=== PATIENT | female | born 1950 | race Caucasian/White ===

== ENCOUNTER → 2020-07-25 16:26 | Outpatient (CLI) | payer MEDICARE, SELFPAY ==
--- NOTE | ~2020-07-25 | MM_ITS ---
EXAMINATION: MM screening luc BI w winston HISTORY: Screening TECHNIQUE: Craniocaudal and mediolateral oblique 3-D tomosynthesis images were obtained and synthetic 2-D images were generated. CAD analysis was submitted and interpreted. COMPARISON: Comparison to multiple prior studies sequentially, with oldest reviewed study dated 04/13. BREAST PARENCHYMAL COMPOSITION: The breasts are extremely dense, which lowers the sensitivity of mamm ography FINDINGS: There is no evidence of suspicious mass, calcification, or architectural distortion to sugg est malignancy in either breast. There has been no suspicious interval change. IMPRESSION: 1. No mammographic evidence of malignancy. 2. Recommend routine screening mammography in one year. BI-RADS Category 1: Negative Reviewed, dictated and finalized at location A.
== END ==
DX: Z12.31 Encounter for screening mammogram for malignant neoplasm of breast (principal)
CPT/HCPCS: 77063; 77067

== ENCOUNTER 2020-12-25 17:31 | Emergency (ER) | payer MEDICARE, SELFPAY ==
[2020-12-25 18:17] VITALS: BP 114/45; PULSE 59; RESP 16; TEMP 36.2; O2SAT 94
--- NOTE | 2020-12-25 21:02 | PC.NURSE ---
states I am just going to go home denies any sob. states feeling better. Advised to stay to be evaluated by provider.
== END 2020-12-25 21:02 | disposition left against medical advice (07) ==
DX: R10.9 Unspecified abdominal pain (principal)
CPT/HCPCS: 99199

== ENCOUNTER 2021-07-31 02:20 | Day surgery (SDC) | payer MEDICARE, SELFPAY ==
[2021-07-09 14:37] VITALS: BMI 19.8
--- NOTE | 2021-07-14 08:34 | SUR.PREOP ---
07/14/21 0836 spoke with patient via phone regarding contacting [facility] for her prep. Pt complained of having abdominal pain with lifting and coughing. Patient states that she had one or two hernias. Instructed the patient to call her primary to discuss her abdominal pain and possible hernia. We discussed the possibility of maybe needing to cancel her screening colonoscopy while they look into her hernia/abdominal pain. Patient stated she was going to call her primary to set up an appointment to see them to get it looked at. I discuss the potential of having or getting an incarcerated hernia and the need to get is checked out. Patient voiced understanding. She said she would wait to call [facility] until she seen her primary in the event that she would need to post-pone her colonoscopy. I asked that she just let us know what she finds out in regards to keeping her colonoscopy appointment. She agreed.
[2021-07-31 07:54] VITALS: BP 118/51; PULSE 62; RESP 16; TEMP 36.5; O2SAT 99
[2021-07-31] MEDS: LACTATED RINGERS 1,000 ML 150 ML IV CONT (08:08)
--- NOTE | 2021-07-31 08:24 | WPDGICN ---
Assessment and Plan Assessment and plan (1) Family history of rectal cancer: Code(s): Z80.0 - Family history of malignant neoplasm of digestive organs Status: Acute Assessment and Plan: Patient's sister had rectal cancer at a young age 20. Plan is for surveillance colonoscopy now and consider this at 5 year intervals in the future. GI Consult Note Consult date/time: 07/31/21 08:24 Reason for consult: Family history of rectal cancer in her sister. HPI: Jimena Au is a 71 year old female Presents for neoplasia screening colonoscopy. Patient's current weight appetite and bowel movements are normal. She denies abdominal pain. Patient has had no bleeding. Family history is significant her sister had rectal cancer at age 20. Patient's most recent colonoscopy 2015 was unremarkable. Patient presents today for follow-up surveillance colonoscopy. Her current weight appetite bowel movements are normal. She denies abdominal pain. Patient has had no bleeding. She desires neoplasia screening. Review of Systems Review of Systems: Review of systems noncontributory. PMF Social History Social History Smoking status: Current every day smoker Smokeless tobacco user: other Additional smoking assessment comments: Smokes marijuana Alcohol intake: current Drinks per week: 2 Substance use: current Substance use type: marijuana Other substance usage details: Smokes Last use: 07/09/21 Living arrangements: other Additional living arrangements comments: With SP Spiritual care concerns: No Meds Home Medications and Allergies Home Medications Medication Instructions Recorded Confirmed Type No Home Medications 07/09/21 07/31/21 History Allergies Allergy/AdvReac Type Severity Reaction Status Date / Time codeine Allergy Unknown Nausea Verified 07/31/21 07:53 Vital Signs Vital Signs - 24 hr 07/31/21 07:54 Temperature 97.7 F Pulse Rate 62 Respiratory Rate 16 Blood Pressure 118/51 L Pulse Oximetry 99 Oxygen Delivery Room Air Exam Narrative: Physical exam reveals patient to be alert. Vital signs stable. HEENT exam is unremarkable. Patient is anicteric. Lungs are clear to auscultation and percussion. Heart is without murmur or extra sounds. Abdominal exam bowel sounds are present soft nontender with no organomegaly. Digital external rectal exam is normal.
--- NOTE | 2021-07-31 08:32 | WPDANESEPPF ---
Anes - Initial Pre Proc Eval Procedure: Operation Date: 07/31/21 09:00 Proposed Procedures p Screening Colonoscopy - Zelalem Roman MD Date/Time: 07/31/21 08:32 Surgeon: Zelalem Roman MD Pre Op Diagnosis: neoplasm screening Patient Data Age: 71 Gender: F Height: 1.63 m Weight: 51.9 kg Last Vital Signs Temp 97.7 F 07/31/21 07:54 Pulse 62 07/31/21 07:54 Resp 16 07/31/21 07:54 BP 118/51 L 07/31/21 07:54 Pulse Ox 99 07/31/21 07:54 O2 Del Method Room Air 07/31/21 07:54 Allergies Allergy/AdvReac Type Severity Reaction Status Date / Time codeine Allergy Unknown Nausea Verified 07/31/21 07:53 Home Medications Medication Instructions Recorded Confirmed Type No Home Medications 07/09/21 07/31/21 History Patient hx anesthesia problems: none Family hx anesthesia problems: none Results Review: All pre-operative results and documents have been reviewed as part of the pre-operative evaluation. [facility] Social History Social History Smoking status: Current every day smoker Smokeless tobacco user: other Additional smoking assessment comments: Smokes marijuana Alcohol intake: current Drinks per week: 2 Substance use: current Substance use type: marijuana Other substance usage details: Smokes Last use: 07/09/21 Living arrangements: other Additional living arrangements comments: With SP Spiritual care concerns: No Anes - Eval Final PreProcedure Day of Procedure 07/31/21 08:32 Patient weight: normal Heart: regular rate and rhythm Lungs: clear to auscultation Airway: Mallampati scale class II Neurological: alert and oriented Last oral intake: >/= 8 hours ASA classification: II Emergent: no Anesthetic plan: proceed Anesthesia type and monitoring: general GIVS and standard monitoring Results Review: All pre-operative results and documents have been reviewed as part of the pre-operative evaluation. Informed Consent: The patient's anesthetic plan and its attendant risks and benefits were discussed with the patient/family/POA. Questions were solicited and answers provided to the satisfaction of the patient/family/POA.
[2021-07-31 09:41] VITALS: BP 98/43; PULSE 65; RESP 23; O2SAT 98
[2021-07-31 09:51] VITALS: BP 103/62; PULSE 63; RESP 23; O2SAT 99
[2021-07-31 10:01] VITALS: BP 113/69; PULSE 59; RESP 16; O2SAT 100
== END 2021-07-31 10:12 | disposition home or self-care (01) ==
PROVIDERS: PCP Family Medicine; Visit Provider Internal Medicine Gastroenterology
PROC: 0DJD8ZZ Inspection of Lower Intestinal Tract, Via Natural or Artificial Opening Endoscopic (ICD-10-PCS; CPT 45378; principal; 2021-07-31 09:00)
DX: Z12.11 Encounter for screening for malignant neoplasm of colon (principal); K64.8 Other hemorrhoids; Z80.0 Family history of malignant neoplasm of digestive organs; F17.210 Nicotine dependence, cigarettes, uncomplicated; F12.90 Cannabis use, unspecified, uncomplicated
CPT/HCPCS: G0105; J2704; J7120

== ENCOUNTER 2022-10-20 11:46 | Outpatient (CLI) | payer MEDICARE, SELFPAY ==
[2022-10-22 13:13] LABS: NIL 0.01 IU/mL; Quantiferon TB Plus, 1T NEGATIVE (NEGATIVE); TB1-NIL 0.01 IU/mL
== END 2022-10-20 11:47 | disposition home or self-care (01) ==
PROVIDERS: PCP Family Medicine; Visit Provider Internal Medicine Pulmonary Disease
DX: R91.1 Solitary pulmonary nodule (principal)
CPT/HCPCS: 36415; 86480

== ENCOUNTER → 2023-02-12 10:07 | Outpatient (CLI) | payer MEDICARE, SELFPAY ==
--- NOTE | ~2023-02-12 | MM_ITS ---
EXAMINATION: MM screening luc BI w winston HISTORY: Screening TECHNIQUE: Craniocaudal and mediolateral oblique 3-D tomosynthesis images were obtained and synthetic 2-D images were generated. CAD analysis was submitted and interpreted. COMPARISON: Comparison to multiple prior studies sequentially, with oldest reviewed study dated 04/13. BREAST PARENCHYMAL COMPOSITION: The breasts are heterogeneously dense, which may obscure small masses . FINDINGS: There is no evidence of suspicious mass, calcification, or architectural distortion to sugg est malignancy in either breast. There has been no suspicious interval change. IMPRESSION: 1. No mammographic evidence of malignancy. 2. Recommend routine screening mammography in one year. BI-RADS Category 1: Negative Reviewed, dictated and finalized at location A. [employer] RECORDS MANAGEMENT
--- NOTE | ~2023-02-12 | DEXA_ITS ---
Bone Density Report Name: ISMA HODGES Age: 72 Sex: Female Ethnicity: White Date of : 1950 Indication: osteopenia; height loss; postmenopausal Referring Provider: ISABEL YUAN Study: Bone densitometry was performed. Exam Date: February 12, 2023 Accession number: [id number] Bone Density: Region BMD T-score Z-score Classification AP Spine (L1-L4) 0.612 -4.0 -1.8 Osteoporosis Femoral Neck (Left) 0.596 -2.3 -0.5 Osteopenia Total Hip (Left) 0.723 -1.8 -0.3 Osteopenia Femoral Neck (Right) 0.562 -2.6 -0.8 Osteoporosis Total Hip (Right) 0.713 -1.9 -0.3 Osteopenia Total Hip Mean 0.718 -1.9 -0.3 Osteopenia World Health Organization criteria for BMD impression classify patients as: Normal (T-score at or above -1.0), Osteopenia (T-score between -1.0 and -2.5), or Osteoporosis (T-score at or below -2.5). 10-year Fracture Risk: FRAX not reported because: Some T-score for Spine Total or Hip Total or Femoral Neck at or below -2.5 Previous Exams: Region Exam Age BMD T-score BMD Change BMD Change Date g/cm2 vs Baseline vs Previous AP Spine(L1-L4) 02/12/2023 72 0.612 -4.0 -0.174 -0.196 04/14/2010 59 0.808 -2.2 0.022 0.022 04/11/2008 57 0.786 -2.4 Total Hip(Left) 02/12/2023 72 0.723 -1.8 -0.036* -0.093* 04/14/2010 59 0.817 -1.0 0.058* 0.058* 04/11/2008 57 0.759 -1.5 Total Hip(Right) 02/12/2023 72 0.713 -1.9 -0.058* -0.091* 04/14/2010 59 0.804 -1.1 0.034* 0.034* 04/11/2008 57 0.770 -1.4 *Denotes significance at 95% confidence level, LSC for AP Spine = 0.022 g/cm2, LSC for Total Hip = 0.027 g/cm2 Clinical Information Provided by Patient: Has used the following medications: Vitamin D, Calcium Patient maximum height was 65 Menopause Age: 47 No regular weight bearing exercise Drinks caffeinated beverages Onset of menses at age 16 Number of children 1 Impression: The patient has osteoporosis, based on the Total Spine T-score. The BMD for the Total Hip(Left) decreased, changing by -0.093 since the last DXA exam. The BMD for the Total Hip(Right) decreased, changing by -0.091 since the last DXA exam. Discussion: INCREASED RISK OF FRACTURE. BONE DENSITY IS UNDESIRABLY LOW AT ONE OR MORE SKELETAL SITES, CONSISTENT WITH POSTMENOPAUSAL OSTEOPOROSIS. This patient's lowest T-score meets the World Health Organization's (WHO) cr
== END ==
PROVIDERS: PCP Internal Medicine; Visit Provider Internal Medicine
DX: Z12.31 Encounter for screening mammogram for malignant neoplasm of breast (principal); Z78.0 Asymptomatic menopausal state; M81.0 Age-related osteoporosis without current pathological fracture; M85.89 Other specified disorders of bone density and structure, multiple sites
CPT/HCPCS: 77063; 77067; 77080

== ENCOUNTER → 2023-03-17 13:00 | Outpatient (CLI) | payer MEDICARE, SELFPAY ==
--- NOTE | ~2023-03-17 | XR_ITS ---
Left Hand Technique: PA, oblique, and lateral views were obtained. Clinical History: Pain Findings: No acute fracture or dislocation is seen. Osseous alignment is anatomic. Joint spaces are p reserved. Soft tissues are unremarkable. Impression: Unremarkable left hand. Reviewed, dictated and finalized at location M. INSPECTOR Impression: Unremarkable left hand.
--- NOTE | ~2023-03-17 | XR_ITS ---
EXAMINATION: XR finger 5th LT min 2V DATE: 03/17/2023 14:02 INDICATION: Left hand pain. TECHNIQUE: 4 views of left hand fifth digit were obtained. COMPARISON: Left hand radiographs 03/17/2023 FINDINGS: Bone alignment is normal. No fracture. There is mild osteoarthritis of fifth distal interph alangeal joint. IMPRESSION: 1. 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 Reviewed, dictated and finalized at location E. 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
--- NOTE | ~2023-03-17 | XR_ITS ---
EXAMINATION: XR ribs LT 2V w CXR 2V DATE: 03/17/2023 14:02 INDICATION: Chest wall pain. Left hand pain. TECHNIQUE: Frontal and lateral views of the chest and 2 views on 3 radiographs of the left ribs were obtained. COMPARISON: Chest 2 views 12/08/2013 FINDINGS: CHEST TWO VIEWS: There is mild scarring at the lung apices. No pleural effusion or pneumothorax. The heart size is normal. LEFT RIBS: There is a fracture deformity of the left fifth rib with callus. IMPRESSION: 1. Subacute versus chronic left fifth rib fracture with callus. 2. Stable mild scarring at the lung apices. Reviewed, dictated and finalized at location E. 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
== END ==
PROVIDERS: PCP Internal Medicine; Visit Provider Internal Medicine
DX: M79.642 Pain in left hand (principal); R07.89 Other chest pain; M19.042 Primary osteoarthritis, left hand; R91.8 Other nonspecific abnormal finding of lung field
CPT/HCPCS: 71046; 71100; 73130; 73140

== ENCOUNTER 2023-05-31 11:00 | Outpatient (CLI) | payer MEDICARE, SELFPAY ==
--- NOTE | ~2023-05-31 | CT_ITS ---
CT Scan of the Chest without Contrast: Clinical Indication: Solitary pulmonary nodule Technique: Contiguous sections were acquired throughout the chest without intravenous contrast. Dose reduction technique was used on this scan by utilizing automated exposure control and iterative recon struction technique. The dose-length product (DLP) was 64.42 mGy-cm. Findings: There is no evidence of any significant mediastinal, hilar or axillary lymphadenopathy. The mediastin al soft tissues appear normal. There is no evidence of pleural or pericardial effusion. Biapical scarring present. 3 mm peripheral right middle lobe nodule noted inferiorly. Images through the upper abdomen reveal no abnormalities. Impression: 3 mm right middle lobe nodule. According to Fleischner Society criteria, for a low-risk patient, no f urther follow-up required. For a high-risk patient, consider 12 month follow-up CT. Biapical scarring. Reviewed, dictated and finalized at [facility]. Impression: 3 mm right middle lobe nodule. According to Fleischner Society criteria, for a low-risk patient, no further follow-up required. For a high-risk patient, consi katerin 12 month follow-up CT. Biapical scarring.
== END 2023-05-31 11:01 | disposition home or self-care (01) ==
PROVIDERS: PCP Internal Medicine; Visit Provider Internal Medicine Pulmonary Disease
DX: R91.1 Solitary pulmonary nodule (principal); R91.8 Other nonspecific abnormal finding of lung field
CPT/HCPCS: 71250

== ENCOUNTER 2024-03-15 21:00 | Emergency (ER) | payer MEDICARE, SELFPAY ==
--- NOTE | ~2024-03-15 | XR_ITS ---
CHEST RADIOGRAPH CLINICAL HISTORY: cp X 2 DAYS . COMPARISON: Reference is made to a CT examination of the chest dated 05/31/2023 TECHNIQUE: Single portable view of the chest. FINDINGS The cardiomediastinal silhouette is unremarkable. Biapical scarring. Interstitial thickening detected bilaterally. No focal infiltrate or effusion. IMPRESSION: Interstitial thickening, without focal infiltrate or effusion. Reviewed, dictated and finalized at location A. 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
[2024-03-15 21:05] VITALS: BP 124/76; PULSE 77; RESP 19; O2SAT 100
[2024-03-15 21:24] LABS: Basophils Percent Auto 0.4 % (0.2-1.2); Eosinophils Absolute Auto 0.1 K/mm3 (0-0.3); Eosinophils Percent Auto 1.4 % (0-4.4); Hemoglobin 13.4 g/dL (12.0-15.0); Immature Granulocyte Absolute 0.02 K/mm3 (0.00-0.031); Immature Granulocyte Percent A 0.3 % (0-0.5); Lymphocytes Absolute Auto 1.81 K/mm3 (0.9-3.2); Lymphocytes Percent Auto 23.8 % (18.3-44.2); Mean Corpuscular HGB Conc 33.5 g/dl (32-36); Mean Corpuscular Hemoglobin 31.6 pg (26-34); Mean Corpuscular Volume 94.3 fl (80-100); Mean Platelet Volume 11.8 fl (7.4-10.4); Monocytes Percent Auto 12.6 % (2.6-8.5); Neutrophils Absolute Auto 4.7 K/mm3 (1.3-6.7); Neutrophils Percent Auto 61.5 % (45.5-73.1); Platelet Count Result 201 k/mm3 (150-375); Red Blood Count 4.24 M/mm3 (4.2-5.4); Red Cell Distribution Width 12.2 % (11.5-14.5); White Blood Count 7.6 K/mm3 (4.5-10.0)
[2024-03-15 21:29] VITALS: O2SAT 95
[2024-03-15 21:39] LABS: Partial Thromboplastin Time 26.3 Seconds (22.3-36.8); Prothrombin Time 13.3 Seconds (11.1-14.7)
[2024-03-15 21:40] LABS: Alanine Aminotransferase 18 U/L (6-35); Albumin Level 4.2 g/dL (3.5-5.1); Alkaline Phosphatase 65 U/L (38-126); Anion Gap 8 mmol/L (4-12); Aspartate Amino Transferase 33 U/L (14-36); Bilirubin,Total 0.7 mg/dL (0.2-1.3); Blood Urea Nitrogen 20 mg/dL (7-17); Calcium 9.3 mg/dL (8.4-10.2); Carbon Dioxide 26 mmol/L (22-30); Chloride 99 mmol/L (98-107); Estimated CRCL calculation 58 ml/min; Estimated Glomerular Filt Rate > 60; Glucose 114 mg/dL (65-110); Lipase 158 U/L (23-300); Magnesium 2.2 mg/dL (1.6-2.3); Potassium 4.3 mmol/L (3.4-5.0); Sodium 133 mmol/L (137-145)
[2024-03-15 21:51] LABS: Troponin I < 0.012 ng/mL (0.000-0.034)
--- NOTE | 2024-03-15 22:13 | ED_ITS ---
HPI - Chest Pain General Chief Complaint: Chest Pain Stated Complaint: Chest pain x 48 hours Time Seen by Provider: 03/15/24 21:13 History of Present Illness HPI narrative: Patient is a 73-year-old female who presents to the emergency department this evening complaining of chest pain that is worse with certain movements and deep inspiration. Patient states that her in her spine are both battling an upper respiratory infection and she is also complaining of body aches all over. States that 2 days ago she was shoveling snow and also picks up her nephew who weighs a lot. Denies any history of cardiovascular disease other than mitral valve prolapse. Denies any nausea, vomiting but admits to mild diarrhea. Denies any additional symptoms or concerns at this time. Related Data Home Medications ?Medication ?Instructions ?Recorded ?Confirmed ?Last Taken ?Type ibuprofen 800 mg tablet 800 mg PO Q12H PRN 10/20/22 02/23/23 Unknown History sertraline 50 mg tablet 50 mg PO DAILY 10/20/22 02/23/23 Unknown History Allergies Allergy/AdvReac Type Severity Reaction Status Date / Time codeine Allergy Unknown Nausea Verified 03/15/24 21:01 Review of Systems 2 Review of Systems: All systems are reviewed and are negative unless stated otherwise in the HPI. [facility] [place] Social History Social History Years smoked: 5 Smoking status: Former smoker Smokeless tobacco user: other Additional smoking assessment comments: Smokes marijuana Alcohol intake: current Drinks per week: 2 Substance use: current Substance use type: marijuana Other substance usage details: Smokes Last use: 07/09/21 Living arrangements: other Additional living arrangements comments: With SP Spiritual care concerns: No Exam 2 Narrative: General: Alert, awake, afebrile, in no acute distress. HEENT: PERRL, no rhinorrhea, no post nasal drip, oropharynx clear. Neck: Trachea midline, no JVD, no lymphadenopathy. Cardiovascular: Regular rate and rhythm, no murmurs, rubs or gallops, no peripheral edema. Respiratory: Clear to auscultation bilaterally, no tachypnea, no wheezing, no rhonchi, no rubs, no respiratory distress. Abdomen: Soft, nontender, nondistended, no rebound, no guarding, no peritoneal signs. Musculoskeletal: No joint swelling or deformity, normal muscle tone. Skin: No rashes or petechia, no signs of infection. Psychiatric: Alert and oriented, normal behavior and judgment for situation. Neurological: Alert and oriented to person, place, and time. Follows all commands. No focal deficits, speech is clear and fluent. Course Vital Signs Vital signs: Vital Signs Pulse Rate 77 03/15/24 21:05 Respiratory Rate 19 03/15/24 21:05 Blood Pressure 124/76 03/15/24 21:05 Pulse Oximetry 100 03/15/24 21:05 Oxygen Delivery Room Air 03/15/24 21:05 Pulse Rate 66 03/15/24 22:58 Respiratory Rate 13 03/15/24 22:58 Blood Pressure 119/70 03/15/24 22:58 Pulse Oximetry 98 03/15/24 22:58 Oxygen Delivery Room Air 03/15/24 21:29 MDM - Chest Pain MDM Narrative Medical decision making narrative: The patient was evaluated by myself in the emergency department. History is obtained from patient who is an independent historian and physical exam was performed. External medical records were reviewed at this time. IV was established and pertinent tests were ordered. Patient was administered 15 mg of IV Toradol. EKG was obtained which revealed sinus rhythm rate 75 beats per minute, no evidence of acute ischemia. EKG was independently interpreted by me and is currently pending official cardiology read. Laboratory results obtained revealing no acute process. Troponin negative. Imaging studies obtained included CXR which was independently interpreted by me revealin. Interstitial thickening, without focal infiltrate or effusion. Differential diagnosis considerations include acute viral syndrome, pneumonia, pericarditis, acute coronary syndrome although unlikely given patient's presentation including positional/pleuritic chest pain. Comorbidities impacting this visit include none. I have evaluated and discussed social determinants of health with the patient that could potentially impact subsequent diagnosis and treatment plans. On repeat assessment of the patient, reevaluation revealed that the patient is doing well and is in no acute distress. Patient symptoms have improved since she arrived to our emergency department. Repeat vital signs were all reviewed and noted to be stable. Differential diagnosis and treatment plan were discussed with the patient at bedside. Patient agrees with discussion and after shared medical decision making agrees with discharge. All questions were answered to the patient's satisfaction. Patient will follow up with her PCP in 3-5 days. A script for Robaxin was sent to patient's pharmacy to use as needed for muscle pain. Patient was provided with strict return precautions and instructed to return to the emergency department if any new or worsening symptoms develop. The patient was discharged in stable condition. Lab Data 03/15/24 21:19 03/15/24 21:19 Labs: Lab Results 03/15/24 03/15/24 Range/Units 21:19 21:44 WBC 7.6 (4.5-10.0) K/mm3 RBC 4.24 (4.2-5.4) M/mm3 Hgb 13.4 (12.0-15.0) g/dL Hct 40.0 (37.0-47.0) % MCV 94.3 (80-100) fl MCH 31.6 (26-34) pg MCHC 33.5 (32-36) g/dl RDW 12.2 (11.5-14.5) % Plt Count 201 (150-375) k/mm3 MPV 11.8 H (7.4-10.4) fl Immature Gran % (Auto) 0.3 (0-0.5) % Neut % (Auto) 61.5 (45.5-73.1) % Lymph % (Auto) 23.8 (18.3-44.2) % Whitley % (Auto) 12.6 H (2.6-8.5) % Eos % (Auto) 1.4 (0-4.4) % Baso % (Auto) 0.4 (0.2-1.2) % Lymph # (Auto) 1.81 (0.9-3.2) K/mm3 Whitley # (Auto) 1.0 H (0.1-0.6) K/mm3 Eos # (Auto) 0.1 (0-0.3) K/mm3 Baso # (Auto) 0.0 (0.0-0.1) K/mm3 Abs Immat Gran (auto) 0.02 (0.00-0.031) K/mm3 Absolute Neuts (auto) 4.7 (1.3-6.7) K/mm3 Absolute Nucleated RBC 0.000 (0.0-0.012) K/mm3 Nucleated RBC % 0.0 (0.0-0.2) % PT 13.3 (11.1-14.7) Seconds INR 1.0 APTT 26.3 (22.3-36.8) Seconds Sodium 133 L (137-145) mmol/L Potassium 4.3 (3.4-5.0) mmol/L Chloride 99 (98-107) mmol/L Carbon Dioxide 26 (22-30) mmol/L Anion Gap 8 (4-12) mmol/L BUN 20 H (7-17) mg/dL Creatinine 0.63 L (0.7-1.0) mg/dL Estim Creat Clear Calc 58 ml/min Estimated GFR > 60 (59 - ) Glucose 114 H (65-110) mg/dL Calcium 9.3 (8.4-10.2) mg/dL Magnesium 2.2 (1.6-2.3) mg/dL Total Bilirubin 0.7 (0.2-1.3) mg/dL AST 33 (14-36) U/L ALT 18 (6-35) U/L Alkaline Phosphatase 65 (38-126) U/L Troponin I < 0.012 (0.000-0.034) ng/mL Total Protein 8.0 (6.3-8.2) g/dL Albumin 4.2 (3.5-5.1) g/dL Lipase 158 (23-300) U/L Influenza A (RT-PCR) Negative (Negative) Influenza B (RT-PCR) Negative (Negative) RSV (RT-PCR) Negative (Negative) SARS-CoV-2 RNA (RT-PCR) Negative (Negative) Discharge Plan Discharge Clinical Impression: Atypical chest pain, URI (upper respiratory infection) Patient Disposition: Home, Self-Care Condition: Improved Instructions: Antibiotic Form, Chest Pain (ED), Upper Respiratory Infection (ED) Additional Instructions: Please follow-up with your family doctor within the next 3-5 days. Return to emergency department if any new or worsening symptoms develop. Patient Language: Turkmen Prescriptions: New methocarbamol 750 mg tablet 750 mg PO TID PRN (Reason: muscle pain) Qty: 10 0RF No Action ibuprofen 800 mg tablet 800 mg PO Q12H PRN sertraline 50 mg tablet 50 mg PO DAILY azithromycin 250 mg tablet See Rx Instructions PO .COMPLEX Qty: 6 0RF Rx Instructions: take 500 mg today (day 1), then 250 mg for 4 days (days 2-5) PO benzonatate 200 mg capsule 200 mg PO TID PRN (Reason: cough) Qty: 60 0RF Follow-up/Referrals: Portia Quispe MD [Physician] - 3 Days Time of Disposition: 22:17
[2024-03-15] MEDS: KETOROLAC 15 MG/ML VIAL (*BKC) IV PUSH (22:15)
[2024-03-15 22:29] LABS: Influenza A QL RT-PCR Negative (Negative); Influenza B QL RT-PCR Negative (Negative); RSV RNA, RT-PCR Negative (Negative); SARS-CoV-2 RNA PCR Negative (Negative)
[2024-03-15 22:58] VITALS: BP 119/70; PULSE 66; RESP 13; O2SAT 98
== END 2024-03-15 23:02 | disposition home or self-care (01) ==
PROVIDERS: Emergency Medicine; Emergency Provider Emergency Medicine; PCP Family Medicine
DX: J06.9 Acute upper respiratory infection, unspecified (principal); R07.89 Other chest pain; Z20.822 Contact with and (suspected) exposure to COVID-19; Z87.891 Personal history of nicotine dependence; Z79.899 Other long term (current) drug therapy
CPT/HCPCS: 36415; 71045; 80053; 83690; 83735; 84484; 85025; 85610; 85730; 87637; 93005; 96374; 99284; J1885

== ENCOUNTER 2024-06-13 09:56 | Outpatient (CLI) | payer MEDICARE, SELFPAY ==
--- NOTE | ~2024-06-13 | MM_ITS ---
EXAMINATION: MM screening luc BI w winston HISTORY: Screening TECHNIQUE: Craniocaudal and mediolateral oblique 3-D tomosynthesis images were obtained and synthetic 2-D images were generated. CAD analysis was submitted and interpreted. COMPARISON: Comparison to multiple prior studies sequentially, with oldest reviewed study dated 04/2016. BREAST PARENCHYMAL COMPOSITION: The breasts are heterogeneously dense, which may obscure small masses . FINDINGS: There is no evidence of suspicious mass, calcification, or architectural distortion to sugg est malignancy in either breast. There has been no suspicious interval change. IMPRESSION: 1. No mammographic evidence of malignancy. 2. Recommend routine screening mammography in one year. BI-RADS Category 1: Negative Reviewed, dictated and finalized at location A.
== END 2024-06-13 09:57 | disposition home or self-care (01) ==
LOC: MICIMG 09:58
PROVIDERS: PCP Family Medicine; Visit Provider Family Medicine
DX: Z12.31 Encounter for screening mammogram for malignant neoplasm of breast (principal)
CPT/HCPCS: 77063; 77067

== ENCOUNTER 2024-07-18 16:42 | Outpatient (CLI) | payer MEDICARE, SELFPAY ==
--- NOTE | ~2024-07-18 | CT_ITS ---
EXAMINATION: CT chest high resolution wo co DATE: 07/18/2024 17:23 INDICATION: R91.8 - Other nonspecific abnormal finding of lung field TECHNIQUE: Computed tomography (CT) of the chest was performed without intravenous contrast. Addition al 3D reconstructions utilizing coronal maximum intensity projection (MIP) were performed. Automated exposure control and iterative reconstruction technique were employed. The dose-length product was 13 5.96 mGy-cm. COMPARISON: Chest CT dated 05/31/2023 FINDINGS: Stable appearance of moderate biapical pleural-parenchymal scarring. Also unchanged is mild spondylit ic bronchiectasis most prominent in the bilateral upper lobes. Again seen is a small region of tree-i n-bud opacity in the right middle lobe consistent with sequela of chronic pneumonia with increase in new or increased now 5 mm subpleural nodule. Unchanged small tubular bronchocele in the anterior basi lar segment of the left lower lobe at the bilateral costophrenic angle. No pulmonary edema or pleural effusion. Heart size is normal. Minimal pericardial effusion. Thoracic aorta is normal in caliber. N o pathologically enlarged thoracic lymphadenopathy. Cholecystectomy clips at the gallbladder fossa. M ild thoracic dextroscoliosis with mild spondylosis. IMPRESSION: 1. Region of chronic tree-in-bud opacity in the right middle lobe consistent with sequela of chronic infection. There is associated new versus enlarging 5 mm nodule and would recommend six-month follow- up low-dose noncontrast chest CT. 2. Mild upper lobe predominant bronchiectasis with stable appearance of moderate biapical pleural-par enchymal scarring. Reviewed, dictated and finalized at location A. IMPRESSION: 1. Region of chronic tree-in-bud opacity in the right middle lobe consistent wi th sequela of chronic infection. There is associated new versus enlarging 5 mm nodule and would recommend six-month follow-up low-dose noncontrast chest CT. 2. Mild upper lobe predominant bronchiectasis with stable appearance of moderat e biapical pleural-parenchymal scarring.
--- OUTSIDE RECORDS SUMMARY | 2024-07-18 16:46 | XMS_ITS | Encounter Summary ---
Author Organization [facility] Address [address] [facility] [place] [address] Care Team Providers Care Talent Acquisition Operations Manager Name Role Phone Shirley Velasquez MD Primary Care Provider Cristofer Hull MD Primary Care Provider [phone] Reason for Visit * Reason Onset Date Comments Cough 11/01/2018 Encounter Details Date Type Department Care Team (Late st Contact Info) Description 11/01/2018 Telephone [facility] General Internal Medicine [address] [facility] [address] [place] [address] Shirley Velasquez MD [address] [facility] [address] [place], [place] [id number] Cough Social History Tobacco Use Types Packs/Day Years Used Date Smoking Tobacco: Former Cigarettes Q uit: 12/20/1984 Smokeless Tobacco: Never Alcohol Use Standard Drinks/Week Comments Yes 7 (1 standard drink = 0.6 oz pur e alcohol) 4-6 drinks/ week Comments No Sex and Gender Information Value Date Recorded Sex Assigned at Not on file Legal Sex Female 5:21 PM DOOR CLAMP OPERATOR Gender Identity Not on file Sexual Orientation Not on file documented as of this encounter Miscellaneous Notes * Telephone Encounter - Stephanie León RN - 11/01/2018 10:15 AM CDT Patient concerned she is coughing up taupe colored sputum and they are having guests coming in witha 3 month old baby and she is worried. She would like to speak directly with Dr Velasquez Offered triage> She declined [phone] documented in this encounter Plan of Treatment Upcoming Encounters Date Type Department Care Team (Late st Contact Info) Description 06/07/2025 11:00 AM CDT Office Visit [facility] - [facility]hthalmology [address] [facility], [place] [address] Aly Stone, SHAZIA [address] [place] [address] documented as of this encounter Goals Goal Patient Goal Type Associated Problems Recent Progress Patient-Stated? Author Safety General On track( 11:17 AM DOOR CLAMP OPERATOR) Elle Timmons, RN Note: Expected end date: Ongoing Interventions: Your nurse will assess your risk for falls/injury each visit Use appropriate and safe transfer methods Medication Management General On track( 11:17 AM DOOR CLAMP OPERATOR) Elle Timmons, MARIA ELENA Note: Expected end date: Ongoing Interventions: Take all medications as prescribed Let your doctor know right away about any changes in your medications documented as of this encounter Visit Diagnoses Not on filedocumented in this encounter Care Teams Talent Acquisition Operations Manager Relationship Specialty Start Date End Date Shirley Velasquez MD PCP - General 01/23/16 03/21/24 Cristofer Hull MD [address] [place] [address] PCP - General Family Medicine 03/22/24 documented as of this encounter
--- OUTSIDE RECORDS SUMMARY | 2024-07-18 16:46 | XMS_ITS | Encounter Summary ---
Author Organization [facility] Address [address] [facility] [place] [address] Care Team Providers Care Recreation Center Director Name Role Phone Shirley Velasquez MD Primary Care Provider Cristofer Hull MD Primary Care Provider [phone] Reason for Visit * Reason Onset Date Comments Procedure Prior Auth Request 10/31/2018 Encounter Details Date Type Department Care Team (Late st Contact Info) Description 10/31/2018 Telephone [facility] General Internal Medicine [address] [facility] [address] [place] [address] Shirley Velasquez MD [address] [facility] [address] [place], [place] [id number] Procedure Prior Auth Request Social History Tobacco Use Types Packs/Day Years Used Date Smoking Tobacco: Former Cigarettes Q uit: 12/20/1984 Smokeless Tobacco: Never Alcohol Use Standard Drinks/Week Comments Yes 7 (1 standard drink = 0.6 oz pur e alcohol) 4-6 drinks/ week Comments No Sex and Gender Information Value Date Recorded Sex Assigned at Not on file Legal Sex Female 5:21 PM RUBBER BLOCK LAYER Gender Identity Not on file Sexual Orientation Not on file documented as of this encounter Miscellaneous Notes * Telephone Encounter - Shirley Velasquez MD - 11/04/2018 11:50 AM CDT Thank you - no result yet, will call as soon as available. * Telephone Encounter - Beatriz Pepper RN - 11/04/2018 10:16 AM CDT Pt had CT done this morning. Came to it help desk technician at 207. Is requesting that Dr Velasquez call her as soon as possible when results are in. She said there is a lot of cancer in her family and she is very anxious about this. * Telephone Encounter - Shirley Velasquez MD - 10/31/2018 2:23 PM CDT Patient had an abnormal CXR; this is the reason for further imaging. The reason given for denial isincorrect. Called available number; was told that they did not receive the imaging report that they requested.No documentation of this request; the CXR was an outside image and the report is not yet in our system. Was then told that as the decision has been made, despite the fact that the reason is incorrect, and the only avenue would be to file an appeal. Was given the number - called, and was told that this was the incorrect number. Was then transferred to , which was an automated system that did not have an option for anappeal. Routing to clinic staff with high priority - please obtain correct number for next steps to appeal this decision. * Telephone Encounter - Ailyn Angel RN - 10/31/2018 1:50 PM CDT Stacie with [employer] calling to report PA for CT is denied. States non cardiac xray is normal, detailed assessment and evaluation of other possible causes of pain must be supported prior to CT or CT/angiography including cardiac ECG, stress tests, GI and pulmonary. [phone] Ref [id number] documented in this encounter Plan of Treatment Upcoming Encounters Date Type Department Care Team (Late st Contact Info) Description 06/07/2025 11:00 AM CDT Office Visit [facility] - Ophthalmology [address] [facility], [place] [address] Aly Stone, SHAZIA [address] [place] [address] documented as of this encounter Goals Goal Patient Goal Type Associated Problems Recent Progress Patient-Stated? Author Safety General On track( 11:17 AM RUBBER BLOCK LAYER) No Elle Jackson, RN Note: Expected end date: Ongoing Interventions: Your nurse will assess your risk for falls/injury each visit Use appropriate and safe transfer methods Medication Management General On track( 11:17 AM RUBBER BLOCK LAYER) Elle Timmons, RN Note: Expected end date: Ongoing Interventions: Take all medications as prescribed Let your doctor know right away about any changes in your medications documented as of this encounter Visit Diagnoses Not on filedocumented in this encounter Care Teams Recreation Center Director Relationship Specialty Start Date End Date Shirley Velasquez MD PCP - General 01/23/16 03/21/24 Cristofer Hull MD [address] [place], [place] [id number] PCP - General Family Medicine 03/22/24 documented as of this encounter
--- OUTSIDE RECORDS SUMMARY | 2024-07-18 16:46 | XMS_ITS | Encounter Summary ---
Author Organization [facility] Address [address] [place] [address] Phone Care Team Providers Care Staff Services Manager Name Role Phone Shirley Velasquez MD Primary Care Provider Bianca Yang NP Primary Care Provider Sean Bar MD Primary Care Provider [phone] Portia Quispe MD Unavailable [phone] Gabino Gusman MD Unavailable Portia Quispe MD Primary Care Provider [phone] Encounter Details Date Type Department Care Team (Latest Contact Info) Description 07/25/2020 Orders Only [facility] Scanning, Provider Social History Tobacco Use Types Packs/Day Years Used Date Smoking Tobacco: Former Cigarettes Q uit: 1987 Smokeless Tobacco: Never Alcohol Use Standard Drinks/Week Comments Yes 0 (1 standard drink = 0.6 oz pur e alcohol) social Comments No Sex and Gender Information Value Date Recorded Sex Assigned at Not on file Legal Sex Female 12:49 AM TELLER COORDINATOR Gender Identity Not on file Sexual Orientation Not on file documented as of this encounter Plan of Treatment Not on file documented as of this encounter Procedures Procedure Name Priority Date/Time Associated Diagnosis Comments SCAN - RADIOLOGY/IMAGING 07/25/2020 documented in this encounter Results * SCAN - RADIOLOGY/IMAGING (07/25/2020) Anatomical Region Laterality Modality Other us Provider Scanning Final Result documented in this encounter Visit Diagnoses Not on filedocumented in this encounter Additional Health Concerns Infection Onset Date Last Indicated Resolved Time COVID: Suspected 04/28/2021 04/28/2021 04/28/2021 7:51 PM TELLER COORDINATOR documented as of this encounter Care Teams Staff Services Manager Relationship Specialty Start Date End Date Shirley Velasquez MD PCP - General Internal Medicine 06/03/18 11/26/20 Bianca Yang NP PCP - General Nurse Practitioner 11/27/20 03/11/21 Sean Bar MD PCP - General Family Medicine 03/12/21 04/25/23 Portia Quispe MD [address] [employer] [place] [address] PCP - General Internal Medicine 04/26/23 Portia Quispe MD [address] [place] [address] Referring Physician Internal Medicine 04/09/23 Gabino Gusman MD [address] [place] [address] Medical Oncologist/[facility] Medical Oncology 04/14/23 documented as of this encounter
--- OUTSIDE RECORDS SUMMARY | 2024-07-18 16:46 | XMS_ITS | Encounter Summary ---
Author Organization [facility] Address [address] [facility] [place] [address] Care Team Providers Care Carton Forming Machine Tender Name Role Phone Shirley Velasquez MD Primary Care Provider Cristofer Hull MD Primary Care Provider [phone] Reason for Visit * Reason Onset Date Comments Chest Pain 10/21/2018 Encounter Details Date Type Department Care Team (Late st Contact Info) Description 10/21/2018 Telephone [facility] [address] [facility] [address] [place] [address] Shirley Velasquez MD [address] [facility] [address] [place], [place] [id number] Chest Pain Social History Tobacco Use Types Packs/Day Years Used Date Smoking Tobacco: Former Cigarettes Q uit: 12/20/1984 Smokeless Tobacco: Never Alcohol Use Standard Drinks/Week Comments Yes 7 (1 standard drink = 0.6 oz pur e alcohol) 4-6 drinks/ week Comments No Sex and Gender Information Value Date Recorded Sex Assigned at Not on file Legal Sex Female 5:21 PM PHOTOGRAPH FINISHER Gender Identity Not on file Sexual Orientation Not on file documented as of this encounter Miscellaneous Notes * Telephone Encounter - Ameirca Boston - 10/25/2018 10:39 AM CDT Jimena Winchester Angely came to window and stated that she is still in lateral right lower ribcage area. She states that Dr. Velasquez is aware of the problem. She took her last Ibuprofen 800 mg today. She would like Dr. Velasquez to send something for pain to her pharmacy. She was told not to take Naproxen ordered by Acute Care. I cautioned her about Ibuprofen. It also is an NSAID and she stated she understood but it did help and she had nothing else to take. She assure me it was the last tablet anyway. She declined returning to Acute [facility] and would like Dr. Velasquez to send in to pharmacy a pain medication she would be able to take. * Telephone Encounter - Stephanie León RN - 10/21/2018 1:19 PM CDT Xray order by ENT and results rt lung abnormal -inflamed and spot on lung. Cat scan scheduled for 2week out Went to acute care on 10/19/18 Still in pain rt side chest(No change)and would like something for pain. She has Motrin 800mg unsure if she should take. Not taking anything for as Dr Velasquez said do not take naproxen. [phone] documented in this encounter Plan of Treatment Upcoming Encounters Date Type Department Care Team (Late st Contact Info) Description 06/07/2025 11:00 AM CDT Office Visit [facility] - Ophthalmology [address] [place] [id number] Aly Stone, OD [address] [place] [address] documented as of this encounter Goals Goal Patient Goal Type Associated Problems Recent Progress Patient-Stated? Author Safety General On track( 11:17 AM PHOTOGRAPH FINISHER) Elle Timmons RN Note: Expected end date: Ongoing Interventions: Your nurse will assess your risk for falls/injury each visit Use appropriate and safe transfer methods Medication Management General On track( 11:17 AM PHOTOGRAPH FINISHER) No Koeper, Elle K., RN Note: Expected end date: Ongoing Interventions: Take all medications as prescribed Let your doctor know right away about any changes in your medications documented as of this encounter Visit Diagnoses Not on filedocumented in this encounter Care Teams Carton Forming Machine Tender Relationship Specialty Start Date End Date Shirley Velasquez MD PCP - General 01/23/16 03/21/24 Cristofer Hull MD [address] [place] [address] PCP - General Family Medicine 03/22/24 documented as of this encounter
--- OUTSIDE RECORDS SUMMARY | 2024-07-18 16:46 | XMS_ITS | Encounter Summary ---
Author Organization [facility] Address [address] [facility] [place] [address] Care Team Providers Care Light Adjuster Name Role Phone Shirley Velasquez MD Primary Care Provider Cristofer Hull MD Primary Care Provider [phone] Reason for Visit * Reason Onset Date Comments Medication Problem 06/11/2017 Encounter Details Date Type Department Care Team (Late st Contact Info) Description 06/11/2017 Telephone [facility] [address] [facility] [address] [place] [address] Shirley Velasquez MD [address] [facility] [address] [place], [place] [id number] Medication Problem Social History Tobacco Use Types Packs/Day Years Used Date Smoking Tobacco: Former Cigarettes Q uit: 12/20/1984 Smokeless Tobacco: Never Alcohol Use Standard Drinks/Week Comments Yes 0 (1 standard drink = 0.6 oz pur e alcohol) Comments Unknown Sex and Gender Information Value Date Recorded Sex Assigned at Not on file Legal Sex Female 5:21 PM FURNACE MAINTENANCE Gender Identity Not on file Sexual Orientation Not on file documented as of this encounter Miscellaneous Notes * Telephone Encounter - Roseanna Paul MD - 06/11/2017 6:47 PM CDT This is Dr. Jerez's pt and was sent to me instead. * Telephone Encounter - Violet Peter LPN - 06/11/2017 12:39 PM CDT PA was denied by insurance and appeal info was given to provider. Pharmacy is correct in epic if provider would like to order alternate medication. * Telephone Encounter - Luz Kumar - 06/11/2017 12:27 PM CDT Pt Jimena Au Contact # [phone] Patient called in to inquire about the prior authorization needed or the Pulmicort Inhaler. The patient stated that it has been 3 weeks since she was last seen and she needs something to use for her condition. She stated that she is going to get in the car and drive to the office. Please contact the patient to discuss this request. The Pharmacy that she uses is [facility] # [id number] [address] [facility] phone # [phone] and fax # [phone]. AKIL: 05/21/17 NOV: 08/09/17 Thank You, documented in this encounter Plan of Treatment Upcoming Encounters Date Type Department Care Team (Late st Contact Info) Description 06/07/2025 11:00 AM CDT Office Visit [facility] - Ophthalmology [address] [place] [phone] Aly Stone OD [address] [place] [address] documented as of this encounter Visit Diagnoses Not on filedocumented in this encounter Care Teams Light Adjuster Relationship Specialty Start Date End Date Shirley Velasquez MD PCP - General 01/23/16 03/21/24 Cristofer Hull MD [address] [place] [address] PCP - General Family Medicine 03/22/24 documented as of this encounter
--- OUTSIDE RECORDS SUMMARY | 2024-07-18 16:46 | XMS_ITS | Referral Summary ---
Author Organization [facility] Address [address] [place] [address] Care Team Providers Care Career Agent Name Role Phone Portia Quispe MD Unavailable [phone] Gabino Gusman MD Unavailable Portia Quispe MD Primary Care Provider [phone] Allergies Active Allergy Reactions Criticality Noted Date Comments Codeine Nausea & Vomiting,Ot her (See comments),Stomach upset Low 03/31/2012 Methimazole Rash Medium 06/01/2014 Propylthiouracil Other (See comments) Low 5 PTU-can take by Actravis Fish Seiner. , Develops hair loss from PTU-by Olivier Fish Seiner. Medications cyclobenzaprine (FLEXERIL) 10 mg tabletIndicatio ns:Acute pain of both shoulders,Acute bilateral thoracic back pain Take 1 tablet (10 mg total) by mouth 2 (two) times a day as needed for muscle spasms 30 tablet 03/16/2022 Active calcium carb-D3-mag ox-zinc ox 333 mg-133 unit -133 mg-5 mg tabletIndicatio ns:MGUS (monoclonal gammopathy of unknown significance) 03/17/2023 Activ e ibuprofen (ADVIL,MOTRIN) 800 mg tabletIndicatio ns:MGUS (monoclonal gammopathy of unknown significance) 04/20/2023 Activ e sertraline (ZOLOFT) 50 mg tabletIndicatio ns:MGUS (monoclonal gammopathy of unknown significance) TAKE 1 AND 1/2 TABLETS DAILY BY MOUTH 04/09/2023 Active Active Problems Problem Noted Date Diagnosed Date Abdominal pain, epigastric 07/16/2021 History of cholecystectomy 07/16/2021 Chronic non-seasonal allergic rhinitis 2 Benign paroxysmal positional vertigo due to bilateral vestibular disorder 03/12/2021 Chronic obstructive pulmonary disease, unspecifi ed 03/12/2021 Severe episode of recurrent major depressive disorder, with psychotic features 10/04/2020 Assessment & Plan (12/18/2020 1:11 PM CDT): Pt having side effects of weight gain and night sweats with olanzapine - she would like to try a different medication. Advised stopping the olanzapine. Advised starting abilify. Continue zoloft 100 mg daily. Pt is set to establish with psychiatry who can hopefully take over management. No SI/HI. Screening for colorectal cancer 10/03/2020 Assessment & Plan (10/03/2020 12:13 PM CDT): -high risk, first degree relative with hx of rectal cancer in 20's -last colonoscopy ~2011, advised repeating now - order placed Suicidal ideation 10/03/2020 Assessment & Plan (10/03/2020 12:24 PM CDT): -active SI with concrete plan, advised ER for urgent evaluation. Patient declines, has something in the crock-pot, having company over later -strongly encouraged her to call suicide hotline in the event of active intentions to harm herself or others, telephone number given -consulted with her PCP, Dr. Velasquez, while patient in office; agreed with urgent evaluation in ER -start Abilify 2 mg daily, continue sertraline 200 mg daily -close follow up via telehealth tomorrow with Dr. Velasquez Change in bowel movement 03/22/2020 Chronic sinusitis 10/17/2018 Chronic rhinitis 08/08/2018 Chronic cough 07/12/2018 Assessment & Plan (07/12/2018 1:13 PM CDT): The cough may be secondary laryngeal hypersensitivity. I am concerned that the patient's post-nasal drip may be triggering the cough. While she does exhibit signs of paradoxical vocal fold motion, I do not think that this is contributing to the patient's symptoms. I will have the patient see one of our rhinologists. We will decide on next steps after this evaluation. 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 Discussed possible GERD vs medication side effects. Follow up in 4w Weight loss 10/04/2020 03/12/2021 Ear lesion 03/22/2020 03/12/2021 Shortness of breath 10/17/2018 03/12/19 22 Immunizations Immunization Administration Dates Next Due Influenza, Quadrivalent, Hig h Dose, Preservative Free, Intrr 03/12/2021 Influenza, Quadrivalent, Spl it, Preservative Free, Intramuscular 02/02/2022 Influenza, Trivalent, High D ose, Split, Preservative Free, Intramuscular 11/07/2018,02/07/2018 Influenza, Trivalent, IM (MDV) 01/22/2014 Influenza, Unspecified 12/20/2014 Pneumococcal Conjugate PCV 13 02/07/2018 Pneumococcal Polysaccharide PPV23 02/06/2019 Tdap 09/03/2014,07/23/2014 ZOSTER LIVE 09/03/2014,07/23/2014 Social History Tobacco Use Types Packs/Day Years Used Date Smoking Tobacco: Former Cigarettes Q uit: 1987 Smokeless Tobacco: Never Tobacco Cessation:Counseling Given: Not Answered Alcohol Use Standard Drinks/Week Comments Yes 0 (1 standard drink = 0.6 oz pur e alcohol) social PHQ-2 Answer Date Recorded PHQ-2 Total Score (If total score is 3 or more points, staff should administer the PHQ-9) 0 07/16/2021 Personal Safety Answer Date Recorded Getting School Help Needed Not on file 02/05 Comments No Sex and Gender Information Value Date Recorded Sex Assigned at Not on file Legal Sex Female 12:49 AM COAT OPERATOR INSULATOR Gender Identity Not on file Sexual Orientation Not on file Last Filed Vital Signs Vital Sign Reading Time Taken Comments Blood Pressure 147/69 04/26/2023 9:28 AM COAT OPERATOR INSULATOR Pulse 82 04/26/2023 9:28 AM COAT OPERATOR INSULATOR Temperature 36.3 C (97.3 F) 04/26/2023 9:28 AM COAT OPERATOR INSULATOR Respiratory Rate 18 04/26/2023 9:28 AM COAT OPERATOR INSULATOR Oxygen Saturation 98% 04/26/2023 9:28 AM COAT OPERATOR INSULATOR Inhaled Oxygen Concentration - - Weight 53.5 kg (118 lb) 04/26/2023 9:28 AM COAT OPERATOR INSULATOR Height 162.6 cm (5' 4.02 ) 04/26/2023 9:28 AM CS T Body Mass Index 20.24 04/26/2023 9:28 AM COAT OPERATOR INSULATOR Plan of Treatment Not on file Procedures Procedure Name Priority Date/Time Associated Diagnosis Comments COLONOSCOPY Routine 07/31/2021 SCREENING MAMMOGRAM BILATERAL W JAVIER Schedule Routine, Read Routine (OP Routine) 07/25/2020 from Last 3 Months or Most Recently Relevant to Health Maintenance Results * Colonoscopy (07/31/2021) Anatomical Region Laterality Modality Other us Historical Provider ENDOSCOPY PROCEDURES Viky l Result * Screening Mammogram Bilateral W Javier (07/25/2020) Anatomical Region Laterality Modality Breast Bilateral Mammography Impressions 07/25/2020 Report scanned under media us Historical Provider IMG MAMMO PROCEDURES Viky l Result from Last 3 Months or Most Recently Relevant to Health Maintenance Insurance [facility] MEDICARE [employer] MEDICARE [employer] MEDICARE Care Teams Career Agent Relationship Specialty Start Date End Date Portia Quispe MD [address] [place] [address] PCP - General Internal Medicine 04/26/23 Portia Quispe MD [address] [place] [address] Referring Physician Internal Medicine 04/09/23 Gabino Gusman MD [address] [place] [address] Medical Oncologist/Religion Professor Medical Oncology 04/14/23
--- OUTSIDE RECORDS SUMMARY | 2024-07-18 16:46 | XMS_ITS | Encounter Summary ---
Author Organization [facility] Address [address] [place] [address] Care Team Providers Care Mobile Ui Developer Name Role Phone Shirley Velasquez MD Primary Care Provider Cristofer Hull MD Primary Care Provider [phone] Reason for Visit * Reason Onset Date Comments SKIN PROBLEM 02/27/2019 Encounter Details Date Type Department Care Team (Late st Contact Info) Description 02/27/2019 Telephone [facility] [address] [facility] [address] [place] [address] Shirley Velasquez MD [address] [facility] [address] [place], [place] [id number] SKIN PROBLEM Social History Tobacco Use Types Packs/Day Years Used Date Smoking Tobacco: Former Cigarettes Q uit: 12/20/1984 Smokeless Tobacco: Never Alcohol Use Standard Drinks/Week Comments Yes 7 (1 standard drink = 0.6 oz pur e alcohol) 4-6 drinks/ week Comments No Sex and Gender Information Value Date Recorded Sex Assigned at Not on file Legal Sex Female 5:21 PM BREAKER OILER Gender Identity Not on file Sexual Orientation Not on file documented as of this encounter Miscellaneous Notes * Telephone Encounter - Chad Rodriguez - 02/27/2019 3:36 PM CST Pt called to request an antibiotic be called into her pharmacy, states she has a spot behind her ear that she has been picking. States she has had it for about a month, now has this red streak going down her neck that is affecting her neck, and there is pus. TN informed the caller that her provideris no longer with [facility], but she could be scheduling in the acute care or go to the urgent care for an antibiotic. Caller verbalized understanding KER OILER documented in this encounter Plan of Treatment Upcoming Encounters Date Type Department Care Team (Late st Contact Info) Description 06/07/2025 11:00 AM CDT Office Visit [facility] - Ophthalmology [address] [place] [phone] Aly Stone, SHAZIA [address] [place] [phone] documented as of this encounter Goals Goal Patient Goal Type Associated Problems Recent Progress Patient-Stated? Author Safety General On track( 11:17 AM BREAKER OILER) No Elle Jackson, MARIA ELENA Note: Expected end date: Ongoing Interventions: Your nurse will assess your risk for falls/injury each visit Use appropriate and safe transfer methods Medication Management General On track( 11:17 AM BREAKER OILER) No Elle Jackson, MARIA ELENA Note: Expected end date: Ongoing Interventions: Take all medications as prescribed Let your doctor know right away about any changes in your medications documented as of this encounter Visit Diagnoses Not on filedocumented in this encounter Care Teams Mobile Ui Developer Relationship Specialty Start Date End Date Shirley Velasquez MD PCP - General 01/23/16 03/21/24 Cristofer Hull MD [address] [place], [place] [id number] PCP - General Family Medicine 03/22/24 documented as of this encounter
--- OUTSIDE RECORDS SUMMARY | 2024-07-18 16:46 | XMS_ITS | Encounter Summary ---
Author Organization [facility] Address [address] [facility] [place] [address] Care Team Providers Care Program Director Group Work Name Role Phone Shirley Velasquez MD Primary Care Provider Cristofer Hull MD Primary Care Provider Reason for Visit * Reason Onset Date Comments Future Appointment 03/29/2018 Encounter Details Date Type Department Care Team (Late st Contact Info) Description 03/29/2018 Telephone [facility] General Internal Medicine [address] [facility] [address] [place] [address] Shirley Velasquez MD [address] [facility] [address] [place], [place] [id number] Future Appointment Social History Tobacco Use Types Packs/Day Years Used Date Smoking Tobacco: Former Cigarettes Q uit: 12/20/1984 Smokeless Tobacco: Never Alcohol Use Standard Drinks/Week Comments Yes 7 (1 standard drink = 0.6 oz pur e alcohol) 4-6 drinks/ week Comments No Sex and Gender Information Value Date Recorded Sex Assigned at Not on file Legal Sex Female 5:21 PM BLANKMAKER Gender Identity Not on file Sexual Orientation Not on file documented as of this encounter Miscellaneous Notes * Telephone Encounter - Pavithra Tsang - 04/04/2018 9:27 AM CST Third attempt left voice mail to call u scheduling at [phone] KMAKER * Telephone Encounter - Luz Kumar - 04/01/2018 2:32 PM CST 2nd Attempt Called the patient and left a message to contact the scheduling department at [phone] KMAKER * Telephone Encounter - Luz Kumar - 03/31/2018 4:35 PM CST 1st Attempt Called the patient and left a message to contact the scheduling department at [phone] KMAKER * Telephone Encounter - Shirley Velasquez MD - 03/31/2018 2:40 PM BLANKMAKER Unfortunately I don't have availability later in the morning on 04/11, and I only see patients in the morning. Please offer another date. KMAKER * Telephone Encounter - Pavithra Tsang - 03/29/2018 2:04 PM CST Pt Jimena Au I called to get patient scheduled to see and the next avail is for 04/11/18 at 8:30 AM. Pt is requesting to get scheduled for that same day but is requesting for later in that day 10 to 11 gary 1 or 2 PM. Thank you so much Pavithra KMAKER documented in this encounter Plan of Treatment Upcoming Encounters Date Type Department Care Team (Late st Contact Info) Description 06/07/2025 11:00 AM CDT Office Visit [facility] - Ophthalmology [address] [place] [address] Aly Stone, SHAZIA [address] [place] [phone] documented as of this encounter Goals Goal Patient Goal Type Associated Problems Recent Progress Patient-Stated? Author Safety General On track( 019 11:17 AM BLANKMAKER) Elle Timmons, RN Note: Expected end date: Ongoing Interventions: Your nurse will assess your risk for falls/injury each visit Use appropriate and safe transfer methods Medication Management General On track( 019 11:17 AM BLANKMAKER) Elle Timmons RN Note: Expected end date: Ongoing Interventions: Take all medications as prescribed Let your doctor know right away about any changes in your medications documented as of this encounter Visit Diagnoses Not on filedocumented in this encounter Care Teams Program Director Group Work Relationship Specialty Start Date End Date Shirley Velasquez MD PCP - General 01/23/16 03/21/24 Cristofer Hull MD [address] [place], [place] [id number] PCP - General Family Medicine 03/22/24 documented as of this encounter
--- OUTSIDE RECORDS SUMMARY | 2024-07-18 16:46 | XMS_ITS | Encounter Summary ---
Author Organization [facility] Address [address] [place] [address] Care Team Providers Care Plant Operations Worker Name Role Phone Shirley Velasquez MD Primary Care Provider Cristofer Hull MD Primary Care Provider [phone] Reason for Visit * Reason Onset Date Comments Future Appointment 12/09/2018 Encounter Details Date Type Department Care Team (Late st Contact Info) Description 12/09/2018 Telephone [facility] General Internal Medicine [address] [facility] [address] [place] [address] Shirley Velasquez MD [address] [facility] [address] [place], [place] [id number] Future Appointment Social History Tobacco Use Types Packs/Day Years Used Date Smoking Tobacco: Former Cigarettes Q uit: 12/20/1984 Smokeless Tobacco: Never Alcohol Use Standard Drinks/Week Comments Yes 7 (1 standard drink = 0.6 oz pur e alcohol) 4-6 drinks/ week Comments No Sex and Gender Information Value Date Recorded Sex Assigned at Not on file Legal Sex Female 5:21 PM HEAD OF DATA Gender Identity Not on file Sexual Orientation Not on file documented as of this encounter Miscellaneous Notes * Telephone Encounter - Chad Rodriguez - 12/09/2018 10:33 AM CDT Pt called and stated that she was contacted by [facility] in regards to scheduling a chest CAT scan. Pt reports that she just had one done, and is inquiring if this was a mistake. 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 Unclear etiology butrecommend repeat 3-6 months. Ordered today, to be scheduled by clinic in mid-January Pt verbalized understanding and stated that she would schedule the appt later. TN recommended that the pt go ahead and schedule now to avoid any scheduling conflicts. Pt verbalized understanding documented in this encounter Plan of Treatment Upcoming Encounters Date Type Department Care Team (Late st Contact Info) Description 06/07/2025 11:00 AM CDT Office Visit [facility] - Ophthalmology [address] [place] [phone] Aly Stone OD [address] [place] [phone] documented as of this encounter Goals Goal Patient Goal Type Associated Problems Recent Progress Patient-Stated? Author Safety General On track( 019 11:17 AM HEAD OF DATA) No Elle Jackson, RN Note: Expected end date: Ongoing Interventions: Your nurse will assess your risk for falls/injury each visit Use appropriate and safe transfer methods Medication Management General On track( 019 11:17 AM HEAD OF DATA) No Elle Jackson, RN Note: Expected end date: Ongoing Interventions: Take all medications as prescribed Let your doctor know right away about any changes in your medications documented as of this encounter Visit Diagnoses Not on filedocumented in this encounter Care Teams Plant Operations Worker Relationship Specialty Start Date End Date Shirley Velasquez MD PCP - General 01/23/16 03/21/24 Cristofer Hull MD [address] [place] [address] PCP - General Family Medicine 03/22/24 documented as of this encounter
--- OUTSIDE RECORDS SUMMARY | 2024-07-18 16:46 | XMS_ITS | Clinical Summary ---
Author Organization [facility] [employer] Address [address] [address] Care Team Providers Care Paint Trimmer Pipe Bowls Name Role Phone Cristofer Hull MD Primary Care Provider [phone] Source Comments [facility] [employer]non-owned Affiliates and Associated Physician Practices is amultiple site organization consisting of ambulatory clinics and hospital sitesin [place], [place], [place] and [place]. This disclosure is being madepursuant to the Care Everywhere program and may not contain all information available regarding this patient. Last updated 17.[facility] [employer] Allergies Active Allergy Reactions Criticality Noted Date Comments Codeine Nausea,Nausea and/or Vomiting,Other,GI Discomfort Low 03/31/2012 Propylthiouracil Other Low 12/20/2014 PTU-can take by Actravis Chief Operator. , Develops hair loss from PTU-by Olivier Chief Operator. Thiamazole Rash Medium 06/01/2014 Medications * Be aware that medications may not be up to date on this document. Alwaysverify current medications with the patient. ibuprofen (MOTRIN) 800 MG tablet Take 1 tablet by mouth every 8 hours as needed for Pain 15 tablet 10/25/2018 Active sertraline (Zoloft) 50 MG tablet Take 1.5 (one and one-half) tablets by mouth once daily Active minoxidil (Rogaine) 2 % solution 05/31/2023 Active Active Problems Problem Noted Date Diagnosed Date Presbyopia of both eyes 03/25/2024 Combined forms of age-related cataract of both e yes 03/25/2024 Staph skin infection 01/07/2021 Severe episode of recurrent major depressive disorder, with psychotic features 10/04/2020 Overview (12/24/2020): Last Assessment & Plan: Pt having side effects of weight gain and night sweats with olanzapine - she would like to try a different medication. Advised stopping the olanzapine. Advised starting abilify. Continue zoloft 100 mg daily. Pt is set to establish with psychiatry who can hopefully take over management. No SI/HI. Suicidal ideation 10/03/2020 Overview (12/24/2020): Last Assessment & Plan: -active SI with concrete plan, advised ER [...] up via telehealth tomorrow with Dr. Velasquez Other specified dermatitis 06/28/2018 History of actinic keratoses 06/28/2018 Menopause ovarian failure 05/04/2018 Graves disease 11/08/2017 Hair loss 11/08/2017 Anxiety 08/09/2017 Actinic keratosis 06/23/2017 Lentigines 06/23/2017 Other rosacea 06/23/2017 Female pattern hair loss 06/23/2017 Seborrheic keratoses 06/23/2017 Melanocytic nevi of trunk 06/23/2017 Other fatigue 05/21/2017 Headache 05/21/2017 Encounter for screening for malignant neoplasm o f colon 12/01/2016 Major depressive disorder, single episode 2015 Age-related osteoporosis wit hout current pathological fracture 12/20/2014 Family history of malignant neoplasm of digestiv e organ 11/07/2014 Nonrheumatic mitral valve prolapse 11/07/2014 Encounter for general adult medical examination without abnormal findings 11/07/2014 Overview (05/24/2017): 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 Colonoscopy - has frequent colonoscopies for family history Q 5 years, Dr. Clement Bone density - pending. Resolved Problems Problem Noted Date Diagnosed Date Resolved Date Thyrotoxicosis with diffuse goiter and without thyroid storm 11/08/2017 11/08/2017 Other osteoporosis without c urrent pathological fracture 11/08/2017 10/25/2018 Cough 04/19/2017 03/30/2018 Encounters Date Type Department Care Team Description 06/07/2024 11:00 AM CDT Office Visit [facility] - Ophthalmology [facility] [place] [address] Aly Stone, OD Combined forms of age-related cataract of both eyes (Primary Dx); Graves disease 06/07/2024 Travel from Last 3 Months Immunizations Immunization Administration Dates Next Due INFLUENZA VACCINE, TRIV. (AF LURIA, FLUZONE TRIVALENT; 6MO+) (IIV3) 01/22/2014 INFLUENZA VACCINE 12/20/2014 INFLUENZA VACCINE, HIGH-DOSE , QUADR. (FLUZONE HIGH-DOSE QUADRIVALENT; 65Y+), 0.7 ML (HD-IIV4) 11/07/2018,02/07/2018 PNEUMOCOCCAL PPSV23 02/06/2019 Pneumococcal Pcv13 Conj 02/07/2018 TDAP (7yrs+) 07/23/2014 ZOSTER VACCINE, LIVE 07/23/2014 Family History Medical History Relation Name Comments Cancer - Prostate Father Status: De ceased Heart Disease Father None Known Maternal Aunt Status: Deceas ed None Known Maternal Grandfather Status: None Known Maternal Grandmother Status: Cancer - Ovarian Mother Status: Dec eased Cancer - Breast Paternal Aunt Status: Dec eased None Known Paternal Grandfather Status: None Known Paternal Grandmother Status: Osteoporosis Sister 1 Status: Alive Osteoporosis Sister 2 2 Status: Alive Osteoporosis Sister 3 Status: Alive Cancer Sister 4 rectal Allergy (Severe) Neg Hx Asthma Neg Hx CVA Neg Hx Cancer - Other Neg Hx Cancer - Skin, Melanoma Neg Hx Cancer - Skin, Non Melanoma Neg Hx Diabetes Neg Hx Eczema Neg Hx Elevated Lipids Neg Hx Hemophilia Neg Hx Hypertension Neg Hx Kidney Disease Neg Hx Psoriasis Neg Hx Rashes/Skin Problems Neg Hx Thyroid Disease Neg Hx Relation Name Status Comments Father Alive Maternal Aunt Maternal Grandfather Maternal Grandmother Mother Paternal Aunt Paternal Grandfather Paternal Grandmother Sister 1 Sister 2 2 Sister 3 Sister 4 Social History Tobacco Use Types Packs/Day Years Used Date Smoking Tobacco: Former Cigarettes Q uit: 12/20/1984 Smokeless Tobacco: Never Tobacco Cessation:Counseling Given: Yes Alcohol Use Standard Drinks/Week Comments Yes 7 (1 standard drink = 0.6 oz pur e alcohol) 4-6 drinks/ week Comments No Sex and Gender Information Value Date Recorded Sex Assigned at Not on file Legal Sex Female 5:21 PM FILING AND POLISHING SUPERVISOR Gender Identity Not on file Sexual Orientation Not on file Last Filed Vital Signs Vital Sign Reading Time Taken Comments Blood Pressure 112/80 02/06/2019 8:44 AM FILING AND POLISHING SUPERVISOR Pulse 72 02/06/2019 8:44 AM FILING AND POLISHING SUPERVISOR Temperature 36.6 C (97.9 F) 02/06/2019 8:44 AM FILING AND POLISHING SUPERVISOR Respiratory Rate 18 10/25/2018 9:47 AM CDT Oxygen Saturation 92% 02/06/2019 8:44 AM FILING AND POLISHING SUPERVISOR Inhaled Oxygen Concentration - - Weight 52.6 kg (116 lb) 02/06/2019 8:44 AM FILING AND POLISHING SUPERVISOR Height 162.6 cm (5' 4 ) 10/25/2018 9:47 AM CDT Body Mass Index 19.91 10/25/2018 9:47 AM CDT Plan of Treatment Upcoming Encounters Date Type Department Care Team (Late st Contact Info) Description 06/07/2025 11:00 AM CDT Office Visit [facility] - Ophthalmology [address] [place] [address] Aly Stone, SHAZIA [address] [place] [address] Health Maintenance Due Date Last Done Comments COLOGUARD (AGES 45-75) - COLON CA SCREENING [address] COLONOGRAPHY - COLON CA SCREENING 1950 FIT - COLON CA SCREENING 1950 FLEX SIG - COLON CA SCREENING 1950 Respiratory Syncytial Virus (RSV) Vaccine Pt: or over 60 yrs (1 - Risk 60-74 years 1-dose series) 2012 ZOSTER VACCINE (2 of 3) 09/17/2014 07/23/2014 MAMMOGRAM 07/25/2022 07/25/2020, 08/2017, 03/27/2016 (Done Outside Per Report) COVID-19 VACCINE ( - season) 2023 LIPID TESTING 11/09/2023 11/08/2018, 11/26/2015 DEPRESSION SCREENING 02/23/2024 MEDICARE AWV CALENDAR YEAR 2024 DTAP/TDAP/TD VACCINES (2 - Td or Tdap) 07/23/2024 07/23/2014 COLONOSCOPY - COLON CA SCREENING 08/01/2031 07/31/2021, 12/01/2016 Colorectal Cancer Screening 08/01/2031 HEPATITIS C SCREENING Completed 11/26/2015 BONE DENSITY TESTING Completed 11/04/2018, 11/30/19 15 PNEUMOCOCCAL VACCINE 50+ Completed 02/06/2019, 01/22 INFLUENZA VACCINE Completed 11/03/2023, , 11/07/2018, Additional history exists HEPATITIS B VACCINE Aged Out No longe r eligible based on patient's age to complete this topic HIB VACCINE Aged Out No longer eligi ble based on patient's age to complete this topic HPV VACCINE Aged Out No longer eligi ble based on patient's age to complete this topic MENINGOCOCCAL (Group B) VACCINE SHARED DECISION-MAKING Aged Out No longer eligible based on patient's age to complete this topic MENINGOCOCCAL GROUPS A/C/Y/W VACCINE Aged Out No longer eligible based on patient's age to complete this topic Goals Goal Patient Goal Type Associated Problems Recent Progress Patient-Stated? Author Safety General On track( 11:17 AM FILING AND POLISHING SUPERVISOR) Elle Timmons RN Note: Expected end date: Ongoing Interventions: Your nurse will assess your risk for falls/injury each visit Use appropriate and safe transfer methods Medication Management General On track( 11:17 AM FILING AND POLISHING SUPERVISOR) Elle Timmons RN Note: Expected end date: Ongoing Interventions: Take all medications as prescribed Let your doctor know right away about any changes in your medications Procedures Procedure Name Priority Date/Time Associated Diagnosis Comments LIPID PROFILE 11/08/2018 12:34 PM CDT DEXA BONE DENSITY AXIAL SKELETON Routine 11/04/2018 9:31 AM CDT Osteoporosis, unspecified osteoporosis type, unspecified pathological fracture presence MAMMOGRAM 01/28/2018 2:41 PM FILING AND POLISHING SUPERVISOR HEPATITIS C AB W/RFLX TO HCV RNA QN PCR Routine 11/26/2015 3:10 PM CDT from Last 3 Months or Most Recently Relevant to Health Maintenance Results * LIPID PROFILE (11/08/2018 12:34 PM CDT) Cholesterol 186 <200 mg/dL [facility] HDL Cholesterol 74 >50 mg/dL [facility] Triglycerides 49 <150 mg/dL [facility] LDL Calculated 98 mg/dL (calc) [facility] Comment: Reference range: <100 Desirable range <100 mg/dL for primary prevention; <70 mg/dL for patients with CHD or diabetic patients with > or = 2 CHD risk factors. LDL-C is now calculated using the Mayur-Sharon calculation, which is a validated novel method providing better accuracy than the Friedewald equation in the estimation of LDL-C. Mayur SS et al. VALENTIN. 2013;310(19): 9718-5193 (http://education.NaHere/faq/AIY939) CHOL/HDLC RATIO 2.5 <5.0 (calc) [facility] Non HDL Cholesterol 112 <130 mg/dL (calc) [facility] Comment: For patients with diabetes plus 1 major ASCVD risk factor, treating to a non-HDL-C goal of <100 mg/dL (LDL-C of <70 mg/dL) is considered a therapeutic option. Test Performed at: [facility] [address] [place] [address] ALEAH RAE DO,MPH 11/08/2018 12:3 4 PM CDT 11/08/2018 12:35 PM CDT Shirley Velasquez MD LAB - CHEMISTRY ORDERA BLES Final Result [facility] [address] [place] [address] * BONE DENSITY AXIAL SKELETON(1OR MORE SITES)[id number] (11/04/2018 9:31 AM CDT) Anatomical Region Laterality Modality Other 11/04/2018 9:51 AM CDT Narrative 11/04/2018 4:35 PM CDT EXAMINATION: Dual energy x-ray absorptiometry of the lumbar spine and hip. CLINICAL INDICATION: Osteoporosis. Patient's height 64 inches; weight 115 lb. FINDINGS: Detailed data from the exam is sent separately to the ordering physician and is also available on [employer], the Radiology Department's computerized picture archive system. COMPARISON: A prior study dated 11/29/2014 used for comparison. SUMMARY: BONE MINERAL DENSITY (BMD) lumbar spine (L1-4): Osteoporotic; T-score -3.2, previously -2.9. BONE MINERAL DENSITY (BMD) left femoral neck: Osteopenic; T-score -2.3, previously -1.9. FRAX 10 year fracture risk is not reported because the T-score for lumbar spine below -2.5. DEFINITIONS: T-score = Standard Deviation Normal: A value for bone mineral density(BMD) within 1 standard deviation of the young adult reference mean. (T-score above -1) Low bone mass(osteopenia): A value for bone mineral density(BMD) more than 1 standard deviation below the young adult mean, but less than 2.5 standard deviations below the young adult mean. ( T-score between -1 and -2.5) Osteoporosis: A value for bone mineral density 2.5 standard deviations or more below the young adult mean. ( T-score at or below -2.5) Severe osteoporosis: Osteoporosis + the presence of one or more fragility fractures. Please note that T-score values are important in determining increased risk for fractures. The T-score represents the standard deviation above or below the mean bone mineral density for young adults. With each -1 standard deviation decrease in bone mineral density, the risk for fracture doubles exponentially. A T-score of -1 will double the risk , and -2 will be 4 times the risk. As a rule of thumb, a T-score of -1 to -2.5 indicates increasing degrees of osteopenia. Dictated by Adilia Scott MD (Nuclear Medicine resident). This report was approved by Adilia Scott on 11/04/2018 9:53 AM . IDr. JOYA M.D. have personally reviewed and interpreted this examination/study. This report was electronically signed by JOYA RANKIN M.D. on 11/04/2018 4:35 PM . Procedure Note Joya Rankin MD - 11/04/2018 EXAMINATION: Dual energy x-ray absorptiometry of the lumbar spine andhip. CLINICAL INDICATION: Osteoporosis. Patient's height 64 inches; lb. FINDINGS: Detailed data from the exam is sent separately to the ordering physician and is also available on [employer], the Radiology Department's computerized picture archive system. COMPARISON: A prior study dated 11/29/2014 used for comparison. SUMMARY: BONE MINERAL DENSITY (BMD) lumbar spine (L1-4): Osteoporotic; T-score -3.2, previously -2.9. BONE MINERAL DENSITY (BMD) left femoral neck: Osteopenic; T-score -2.3, previously -1.9. FRAX 10 year fracture risk is not reported because the T-score forlumbar spine below -2.5. DEFINITIONS: T-score = Standard Deviation Normal: A value for bone mineral density(BMD) within 1 standarddeviation of the young adult reference mean. (T-score above -1) Low bone mass(osteopenia): A value for bone mineral density(BMD) morethan 1 standard deviation below the young adult mean, but less than 2.5 standard deviations below the young adult mean. ( T-score between -1 and -2.5) Osteoporosis: A value for bone mineral density 2.5 standard deviationsor more below the young adult mean. ( T-score at or below -2.5) Severe osteoporosis: Osteoporosis + the presence of one or morefragility fractures. Please note that T-score values are important in determining increased risk for fractures. The T-score represents the standard deviation aboveor below the mean bone mineral density for young adults. With each -1 standard deviation decrease in bone mineral density, the risk forfracture doubles exponentially. A T-score of -1 will double the risk , and -2will be 4 times the risk. As a rule of thumb, a T-score of -1 to -2.5indicates increasing degrees of osteopenia. Dictated by Adilia Scott MD (Nuclear Medicine resident). This report was approved by Adilia Scott on 11/04/2018 9:53 AM . I, Dr. JOYA RANKIN M.D. have personally reviewed and interpreted this examination/study. This report was electronically signed by JOYA RANKIN M.D. on11/04/2018 4:35 PM . us Nader Don MD DEXA ORDERABLES Final Result * MAMMOGRAM (01/28/2018 2:41 PM FILING AND POLISHING SUPERVISOR) Anatomical Region Laterality Modality Other Narrative 01/28/2018 2:41 PM FILING AND POLISHING SUPERVISOR Ordered by an unspecified provider. us Scanned Document SCANNING ONLY Final Result * HEPATITIS C AB W/RFLX TO HCV RNA QN PCR (11/26/2015 3:10 PM CDT) Hepatitis C Antibody NON-REACTI VE NON-REACT [facility] ([facility]) Signal/Cutoff 0.04 <1.00 [facility] ([facility]) Comment: REPORT COMMENT: FASTING:NO Test Performed at: [facility] [place] [address] [place] [address] ALEAH RAE DO,MPH 11/26/2015 3:10 PM CDT 11/26/2015 3:11 PM CDT us Shirley Velasquez MD LAB - CHEMISTRY ORDERA BLES Final Result [facility] ([facility]) [id number] from Last 3 Months or Most Recently Relevant to Health Maintenance Insurance AET[employer] AETNA MEDICARE ADV T AETNA Care Teams Paint Trimmer Pipe Bowls Relationship Specialty Start Date End Date Cristofer Hull MD [address] [place] [address] 57 PCP - General Family Medicine 03/22/24
--- OUTSIDE RECORDS SUMMARY | 2024-07-18 16:46 | XMS_ITS | Clinical Summary ---
Author Organization [facility] Address [address] [place] [address] Care Team Providers Care Laser Technician Name Role Phone Portia Quispe MD Unavailable [phone] Gabino Gusman MD Unavailable Portia Quispe MD Primary Care Provider [phone] Allergies Active Allergy Reactions Criticality Noted Date Comments Codeine Nausea & Vomiting,Ot her (See comments),Stomach upset Low 03/31/2012 Methimazole Rash Medium 06/01/2014 Propylthiouracil Other (See comments) Low 5 PTU-can take by Actravis Lap Regulator. , Develops hair loss from PTU-by Olivier Lap Regulator. Medications cyclobenzaprine (FLEXERIL) 10 mg tabletIndicatio ns:Acute [...] PPV23 02/06/2019 Tdap 09/03/2014,07/23/2014 ZOSTER LIVE 09/03/2014,07/23/2014 Surgical History Surgery Date Site/Laterality Comments TONSILLECTOMY 02/22/1965 - 02/21/1966 CHOLECYSTECTOMY 02/22/1973 - 02/21/1974 GALLBLADDER SURGERY FISTULA REPAIR Medical History Medical History Date Comments Thyroid disease Anxiety Allergic rhinitis Cataracts, bilateral Depression Sinusitis HL (hearing loss) Dizziness Family History Medical History Relation Name Comments Cancer Father Heart disease Father Cancer Grandchild Cancer Mother Cancer Sister Relation Name Status Comments Father Grandchild Mother Sister Social History Tobacco Use Types Packs/Day Years [...] on file Legal Sex Female 12:49 AM CARE CONNECTOR Gender Identity Not on file Sexual Orientation Not on file Obstetrics History Last Filed Vital Signs Vital Sign Reading Time Taken Comments Blood Pressure 147/69 04/26/2023 9:28 AM CARE CONNECTOR Pulse 82 04/26/2023 9:28 AM CARE CONNECTOR Temperature 36.3 C (97.3 F) 04/26/2023 9:28 AM CARE CONNECTOR Respiratory Rate 18 04/26/2023 9:28 AM CARE CONNECTOR Oxygen Saturation 98% 04/26/2023 9:28 AM CARE CONNECTOR Inhaled Oxygen Concentration - - Weight 53.5 kg (118 lb) 04/26/2023 9:28 AM CARE CONNECTOR Height 162.6 cm (5' 4.02 ) 04/26/2023 9:28 AM CS T Body Mass Index 20.24 04/26/2023 9:28 AM CARE CONNECTOR Plan of Treatment Health Maintenance Due Date Last Done Comments Hepatitis C Screening 1950 Hepatitis B Screening 1970 Zoster Vaccine (2 of 3) 10/29/2014 09/03/2014, 07/23 Well Visit 65+ 2017 Osteoporosis Screening-Bone Density Scan 11/04/2020 11/04/2018, 11/04/2018, 11/29/2014 Breast Cancer Screening-Mammogram 07/25/2021 021 Depression Screening 07/16/2022 07/16/2021, 04/09/2021, 03/19/2021, Additional history exists Fall Risk Assessment 07/16/2022 07/16/2021, 04/09/2021, 03/19/2021, Additional history exists Covid-19 Vaccine (4 - 2023-2 5 season) 2023 02/02/2022, 12/19/2020, 04/26/2020 DTaP/Tdap/Td Vaccine (3 - Td or Tdap) 09/03/2024 09/03/2014, 07/23/2014 Influenza Vaccine (Season Ended) 2024 02/02/2022, 03/12/2021, 11/07/2018, Additional history exists Colon Cancer Screening-Colonoscopy 07/31/2026 07/31/2021 Pneumococcal vaccine 65+ Completed 02/06/2019, 01/22 Colon Cancer Screening-CT Colonography Discontinued 07/31/2021 Colon Cancer Screening-DNA Stool Discontinued 08/01/19 Colon Cancer Screening-FIT Discontinued 07/31/2021 Colon Cancer Screening-Sigmoidoscopy Discontinued 07/31/2021 Procedures Procedure Name Priority Date/Time Associated Diagnosis [...] Most Recently Relevant to Health Maintenance Insurance TNA MEDICARE T MEDICARE T MEDICARE Care Teams Laser Technician Relationship Specialty Start Date End Date Potria Quispe MD [address] [facility] [place] [address] PCP - General Internal Medicine 04/26/23 Portia Quispe MD [address] [facility] [place] [address] Referring Physician Internal Medicine 04/09/23 Gabino Gusman MD [address] [facility] [place] [address] Medical Oncologist/Sweat Box Attendant Medical Oncology 2/21/24
== END 2024-07-18 16:43 | disposition home or self-care (01) ==
PROVIDERS: PCP Family Medicine; Visit Provider Family Medicine
DX: R91.1 Solitary pulmonary nodule (principal); J47.9 Bronchiectasis, uncomplicated
CPT/HCPCS: 71250

== ENCOUNTER 2024-12-25 15:34 | Outpatient (CLI) | payer MEDICARE, SELFPAY ==
--- NOTE | ~2024-12-25 | XR_ITS ---
EXAMINATION: XR finger 1st LT min 2V, 12/25/2024 15:47 DIETETIC TECH HISTORY: M79.645 - Pain in left 1ST finger. MCP PAIN COMPARISON: No comparisons available. Findings: No acute fracture or malalignment. Moderate degenerative changes Soft tissues unremarkable. Impression: No acute fracture or malalignment. Reviewed, dictated and finalized at location P. ETIC TECH Impression: No acute fracture or malalignment.
--- OUTSIDE RECORDS SUMMARY | 2024-12-25 15:53 | XMS_ITS | Encounter Summary ---
Author Organization [facility] Address [address] [facility] [place] [address] Care Team Providers Care Director Market Intelligence Name Role Phone Shirley Velasquez MD Primary Care Provider Cristofer Hull MD Primary Care Provider [phone] Reason for Visit * Reason Onset Date Comments Future Appointment 12/09/2018 Encounter Details Date Type Department Care Team (Late st Contact Info) Description 12/09/2018 Telephone [facility] General Internal Medicine [address] [facility] [address] [place] [address] Shirley Velasquez MD [address] [facility] [address] [place], [place] [id number] Future Appointment Social History Tobacco Use Types Packs/Day Years Used Date Smoking Tobacco: Former Cigarettes Q uit: 12/20/1984 Smokeless Tobacco: Never Alcohol Use Standard Drinks/Week Comments Yes 7 (1 standard drink = 0.6 oz pur e alcohol) 4-6 drinks/ week Comments No Sex and Gender Information Value Date Recorded Sex Assigned at Not on file Legal Sex Female 5:21 PM BOW MACHINE OPERATOR Gender Identity Not on file Sexual [...] Description 06/07/2025 11:00 AM CDT Office Visit [facility] - Ophthalmology [address] [place] [phone] Aly Stone OD [address] [place] [phone] documented as of this encounter Goals Goal Patient Goal Type Associated Problems Recent Progress Patient-Stated? Author Safety General On track( 019 11:17 AM BOW MACHINE OPERATOR) No Elle Jackson, RN Note: Expected end date: Ongoing Interventions: Your nurse will assess your risk for falls/injury each visit Use appropriate and safe transfer methods Medication Management General On track( 019 11:17 AM BOW MACHINE OPERATOR) No Elle Jackson, RN Note: Expected end date: Ongoing Interventions: Take all medications as prescribed Let your doctor know right away about any changes in your medications documented as of this encounter Visit Diagnoses Not on filedocumented in this encounter Care Teams Director Market Intelligence Relationship Specialty Start Date End Date Shirley Velasquez MD PCP - General 01/23/16 03/21/24 Cristofer Hull MD [address] [place] [address] PCP - General Family Medicine 03/22/24 documented as of this encounter
--- OUTSIDE RECORDS SUMMARY | 2024-12-25 15:53 | XMS_ITS | Encounter Summary ---
Author Organization [facility] Address [address] [place] [address] Care Team Providers Care Link Trainer Operator Name Role Phone Shirley Velasquez MD Primary Care Provider Cristofer Hull MD Primary Care Provider [phone] Reason for Visit * Reason Onset Date Comments Procedure Prior Auth Request 10/31/2018 Encounter Details Date Type Department Care Team (Late st Contact Info) Description 10/31/2018 Telephone [facility] General Internal Medicine [address] [facility] [address] [place] [address] Shirley Velasquez MD [address] [facility] [address] [place], [place] [id number] Procedure Prior Auth Request Social History Tobacco Use Types Packs/Day Years Used Date Smoking Tobacco: Former Cigarettes Q uit: 12/20/1984 Smokeless Tobacco: Never Alcohol Use Standard Drinks/Week Comments Yes 7 (1 standard drink = 0.6 oz pur e alcohol) 4-6 drinks/ week Comments No Sex and Gender Information Value Date Recorded Sex Assigned at Not on file Legal Sex Female 5:21 PM SANITARIAN Gender Identity Not on file Sexual Orientation Not on file documented as of this encounter Miscellaneous Notes * Telephone Encounter - Shirley Velasquez MD - 11/04/2018 11:50 AM CDT Thank you - no result yet, will call as soon as available. * Telephone Encounter - Beatriz Pepper RN - 11/04/2018 10:16 AM CDT Pt had CT done this morning. Came to desk clerk at 207. Is requesting that Dr Velasquez [...] cardiac ECG, stress tests, GI and pulmonary. [phone] Ref [id number] documented in this encounter Plan of Treatment Upcoming Encounters Date Type Department Care Team (Late st Contact Info) Description 06/07/2025 11:00 AM CDT Office Visit [facility] - Ophthalmology [address] [facility], [place] [address] Aly Stone, SHAZIA [address] [place] [address] documented as of this encounter Goals Goal Patient Goal Type Associated Problems Recent Progress Patient-Stated? Author Safety General On track( 11:17 AM SANITARIAN) No Elle Jackson, RN Note: Expected end date: Ongoing Interventions: Your nurse will assess your risk for falls/injury each visit Use appropriate and safe transfer methods Medication Management General On track( 11:17 AM SANITARIAN) Elle Timmons, RN Note: Expected end date: Ongoing Interventions: Take all medications as prescribed Let your doctor know right away about any changes in your medications documented as of this encounter Visit Diagnoses Not on filedocumented in this encounter Care Teams Link Trainer Operator Relationship Specialty Start Date End Date Shirley Velasquez MD PCP - General 01/23/16 03/21/24 Cristofer Hull MD [address] [place], [place] [id number] PCP - General Family Medicine 03/22/24 documented as of this encounter
--- OUTSIDE RECORDS SUMMARY | 2024-12-25 15:53 | XMS_ITS | Encounter Summary ---
Author Organization [facility] Address [address] [facility] [place] [address] Care Team Providers Care Senior Product Marketing Manager Name Role Phone Shirley Velasquez MD Primary Care Provider Cristofer Hull MD Primary Care Provider [phone] Reason for Visit * Reason Onset Date Comments Cough 11/01/2018 Encounter Details Date Type Department Care Team (Late st Contact Info) Description 11/01/2018 Telephone [facility] General Internal Medicine [address] [facility] 206 [place] [address] Shirley Velasquez MD [address] [facility] [address] [place], [place] [id number] Cough Social History Tobacco Use Types Packs/Day Years Used Date Smoking Tobacco: Former Cigarettes Q uit: 12/20/1984 Smokeless Tobacco: Never Alcohol Use Standard Drinks/Week Comments Yes 7 (1 standard drink = 0.6 oz pur e alcohol) 4-6 drinks/ week Comments No Sex and Gender Information Value Date Recorded Sex Assigned at Not on file Legal Sex Female 5:21 PM STAVE BOLT EQUALIZER Gender Identity Not on file Sexual Orientation [...] with Dr Velasquez Offered triage> She declined [phone] documented in this encounter Plan of Treatment Upcoming Encounters Date Type Department Care Team (Late st Contact Info) Description 06/07/2025 11:00 AM CDT Office Visit [facility] - Ophthalmology [address] [facility], [place] [address] Aly Stone, SHAZIA [address] [place] [address] documented as of this encounter Goals Goal Patient Goal Type Associated Problems Recent Progress Patient-Stated? Author Safety General On track( 11:17 AM STAVE BOLT EQUALIZER) Elle Timmons, RN Note: Expected end date: Ongoing Interventions: Your nurse will assess your risk for falls/injury each visit Use appropriate and safe transfer methods Medication Management General On track( 11:17 AM STAVE BOLT EQUALIZER) Elle Timmons, MARIA ELENA Note: Expected end date: Ongoing Interventions: Take all medications as prescribed Let your doctor know right away about any changes in your medications documented as of this encounter Visit Diagnoses Not on filedocumented in this encounter Care Teams Senior Product Marketing Manager Relationship Specialty Start Date End Date Shirley Velasquez MD PCP - General 01/23/16 03/21/24 Cristofer Hull MD [address] [place] [address] PCP - General Family Medicine 03/22/24 documented as of this encounter
--- OUTSIDE RECORDS SUMMARY | 2024-12-25 15:53 | XMS_ITS | Clinical Summary ---
Author Organization [facility] Address [address] [place] [address] Care Team Providers Care Operations Vocational Instructor Name Role Phone Portia Quispe MD Unavailable [phone] Gabino Gusman MD Unavailable Portia Quispe MD Primary Care Provider [phone] Allergies Active Allergy Reactions Criticality Noted Date Comments Codeine Nausea & Vomiting,Ot her (See comments),Stomach upset Low 03/31/2012 Methimazole Rash Medium 06/01/2014 Propylthiouracil Other (See comments) Low 5 PTU-can take by Actravis Administrative Operations Coordinator. , Develops hair loss from PTU-by Olivier Administrative Operations Coordinator. Medications cyclobenzaprine (FLEXERIL) 10 mg tabletIndicatio ns:Acute [...] Date Smoking Tobacco: Former Cigarettes Q uit: 1986 Smokeless Tobacco: Never Tobacco Cessation:Counseling Given: Not [...] on file Legal Sex Female 12:49 AM NET MAKING SUPERVISOR Gender Identity Not on file Sexual Orientation Not on file Last Filed Vital Signs Vital Sign Reading Time Taken Comments Blood Pressure 147/69 04/26/2023 9:28 AM NET MAKING SUPERVISOR Pulse 82 04/26/2023 9:28 AM NET MAKING SUPERVISOR Temperature 36.3 C (97.3 F) 04/26/2023 9:28 AM NET MAKING SUPERVISOR Respiratory Rate 18 04/26/2023 9:28 AM NET MAKING SUPERVISOR Oxygen Saturation 98% 04/26/2023 9:28 AM NET MAKING SUPERVISOR Inhaled Oxygen Concentration - - Weight 53.5 kg (118 lb) 04/26/2023 9:28 AM NET MAKING SUPERVISOR Height 162.6 cm (5' 4.02) 04/26/2023 9:28 AM CS T Body Mass Index 20.24 04/26/2023 9:28 AM NET MAKING SUPERVISOR Plan of Treatment Health Maintenance Due Date Last Done Comments Hepatitis C Screening 1950 Hepatitis B Screening 1970 Zoster Vaccine (2 of 3) 10/29/2014 09/03/2014, 07/23 Well Visit 65+ 2017 Osteoporosis Screening-Bone Density Scan 11/04/2020 11/04/2018, 11/04/2018, 11/29/2014 Breast Cancer Screening-Mammogram 07/25/2021 021 Depression Screening 07/16/2022 07/16/2021, 04/09/2021, 03/19/2021, Additional history exists Fall Risk Assessment 07/16/2022 07/16/2021, 04/09/2021, 03/19/2021, Additional history exists DTaP/Tdap/Td Vaccine (3 - Td or Tdap) 09/03/2024 09/03/2014, 07/23/2014 Covid-19 Vaccine (4 - 2024-2 6 season) 2024 02/02/2022, 12/19/2020, 04/26/2020 Influenza Vaccine (#1) 2024 2, 03/12/2021, 11/07/2018, Additional history exists Colon Cancer [...] Recently Relevant to Health Maintenance Insurance AETNA MEDICARE AETNA MEDICARE T MEDICARE Care Teams Operations Vocational Instructor Relationship Specialty Start Date End Date Portia Quispe MD PCP - General Internal Medicine 04/26/23 Portia Quispe MD Referring Physician Internal Medicine 04/09/23 Gabino Gusman MD Medical Oncologist/Drug Abuse Resistance Education Officer Medical Oncology 04/14/23
--- OUTSIDE RECORDS SUMMARY | 2024-12-25 15:53 | XMS_ITS | Encounter Summary ---
Author Organization [facility] Address [address] [place] [address] Care Team Providers Care Binder Fixer Name Role Phone Shirley Velasquez MD Primary Care Provider Cristofer Hull MD Primary Care Provider [phone] Reason for Visit * Reason Onset Date Comments SKIN PROBLEM 02/27/2019 Encounter Details Date Type Department Care Team (Late st Contact Info) Description 02/27/2019 Telephone [facility] General Internal Medicine [address] [facility] [address] [facility] [address] [place] [address] Shirley Velasquez MD [address] [facility] [address] [place], [place] [phone] SKIN PROBLEM Social History Tobacco Use Types Packs/Day Years Used Date Smoking Tobacco: Former Cigarettes Q uit: 12/20/1984 Smokeless Tobacco: Never Alcohol Use Standard Drinks/Week Comments Yes 7 (1 standard drink = 0.6 oz pur e alcohol) 4-6 drinks/ week Comments No Sex and Gender Information Value Date Recorded Sex Assigned at Not on file Legal Sex Female 5:21 PM DIRECTOR OF PROCUREMENT Gender Identity Not on file Sexual Orientation [...] care for an antibiotic. Caller verbalized understanding CTOR OF PROCUREMENT documented in this encounter Plan of Treatment Upcoming Encounters Date Type Department Care Team (Late st Contact Info) Description 06/07/2025 11:00 AM CDT Office Visit [facility] - Ophthalmology [address] [place] [phone] Aly Stone, SHAZIA [address] [place] [phone] documented as of this encounter Goals Goal Patient Goal Type Associated Problems Recent Progress Patient-Stated? Author Safety General On track( 11:17 AM DIRECTOR OF PROCUREMENT) No Elle Jackson, MARIA ELENA Note: Expected end date: Ongoing Interventions: Your nurse will assess your risk for falls/injury each visit Use appropriate and safe transfer methods Medication Management General On track( 11:17 AM DIRECTOR OF PROCUREMENT) No Elle Jackson, MARIA ELENA Note: Expected end date: Ongoing Interventions: Take all medications as prescribed Let your doctor know right away about any changes in your medications documented as of this encounter Visit Diagnoses Not on filedocumented in this encounter Care Teams Binder Fixer Relationship Specialty Start Date End Date Shirley Velasquez MD PCP - General 01/23/16 03/21/24 Cristofer Hull MD [address] [place], [place] [id number] PCP - General Family Medicine 03/22/24 documented as of this encounter
--- OUTSIDE RECORDS SUMMARY | 2024-12-25 15:53 | XMS_ITS | Encounter Summary ---
Author Organization [facility] Address [address] [place] [address] Care Team Providers Care Prenatal Genetic Counselor Name Role Phone Shirley Velasquez MD Primary Care Provider Cristofer Hull MD Primary Care Provider [phone] Reason for Visit * Reason Onset Date Comments Medication Problem 06/11/2017 Encounter Details Date Type Department Care Team (Late st Contact Info) Description 06/11/2017 Telephone [facility] General Internal Medicine [address] [facility] 206 [place] [address] Shirley Velasquez MD [address] [facility] [address] [place], [place] [phone] Medication Problem Social History Tobacco Use Types Packs/Day Years Used Date Smoking Tobacco: Former Cigarettes Q uit: 12/20/1984 Smokeless Tobacco: Never Alcohol Use Standard Drinks/Week Comments Yes 0 (1 standard drink = 0.6 oz pur e alcohol) Comments Unknown Sex and Gender Information Value Date Recorded Sex Assigned at Not on file Legal Sex Female 5:21 PM GUIDANCE AND CONTROL SYSTEM ENGINEER Gender Identity Not on file Sexual Orientation [...] PM CDT Pt Jimena Au Contact # [phone] Patient called in to inquire about the [...] request. The Pharmacy that she uses is [facility] # [id number] [address] [facility] phone # [phone] and fax # [phone]. AKIL: 05/21/17 NOV: 08/09/17 Thank You, documented in this encounter Plan of Treatment Upcoming Encounters Date Type Department Care Team (Late st Contact Info) Description 06/07/2025 11:00 AM CDT Office Visit [facility] - Ophthalmology [address] [place] [phone] Aly Stone OD [address] [place] [address] documented as of this encounter Visit Diagnoses Not on filedocumented in this encounter Care Teams Prenatal Genetic Counselor Relationship Specialty Start Date End Date Shirley Velasquez MD PCP - General 01/23/16 03/21/24 Cristofer Hull MD [address] [place] [address] PCP - General Family Medicine 03/22/24 documented as of this encounter
--- OUTSIDE RECORDS SUMMARY | 2024-12-25 15:53 | XMS_ITS | Encounter Summary ---
Author Organization [facility] Address [address] [place] [address] Phone Care Team Providers Care Punching Machine Operator Name Role Phone Shirley Velasquez MD Primary Care Provider Bianca Velez NP Primary Care Provider + Sean Bar MD Primary Care Provider [phone] Portia Quispe MD Unavailable [phone] Gabino Gusman MD Unavailable Portia Quispe MD Primary Care Provider [phone] Encounter Details Date Type Department Care Team [...] on file Legal Sex Female 12:49 AM VP INFORMATION TECHNOLOGY Gender Identity Not on file Sexual Orientation [...] COVID: Suspected 04/28/2021 04/28/2021 04/28/2021 7:51 PM VP INFORMATION TECHNOLOGY documented as of this encounter Care Teams Punching Machine Operator Relationship Specialty Start Date End Date Shirley Velasquez MD PCP - General Internal Medicine 06/03/18 11/26/20 Bianca Velez NP PCP - General Nurse Practitioner 11/27/20 03/11/21 Sean Bar MD PCP - General Family Medicine 03/12/21 04/25/23 Portia Quispe MD PCP - General Internal Medicine 04/26/23 Portia Quispe MD Referring Physician Internal Medicine 04/09/23 Gabino Gusman MD Medical Oncologist/Patient Ombudsperson Medical Oncology 04/14/23 documented as of this encounter
--- OUTSIDE RECORDS SUMMARY | 2024-12-25 15:53 | XMS_ITS | Encounter Summary ---
Author Organization [facility] Address [address] [facility] [place] [address] Care Team Providers Care Juvenile Counselor Name Role Phone Shirley Velasquez MD Primary Care Provider Cristofer Hull MD Primary Care Provider [phone] Reason for Visit * Reason Onset Date Comments Future Appointment 03/29/2018 Encounter Details Date Type Department Care Team (Late st Contact Info) Description 03/29/2018 Telephone [facility] General Internal Medicine [address] [facility] 206 [place] [address] Shirley Velasquez MD [address] [facility] [address] [place], [place] [phone] Future Appointment Social History Tobacco Use Types Packs/Day Years Used Date Smoking Tobacco: Former Cigarettes Q uit: 12/20/1984 Smokeless Tobacco: Never Alcohol Use Standard Drinks/Week Comments Yes 7 (1 standard drink = 0.6 oz pur e alcohol) 4-6 drinks/ week Comments No Sex and Gender Information Value Date Recorded Sex Assigned at Not on file Legal Sex Female 5:21 PM PARACHUTE MENDER Gender Identity Not on file Sexual Orientation Not on file documented as of this encounter Miscellaneous Notes * Telephone Encounter - Pavithra Tsang - 04/04/2018 9:27 AM CST Third attempt left voice mail to call u scheduling at [phone] CHUTE MENDER * Telephone Encounter - Luz Kumar - 04/01/2018 2:32 PM CST 2nd Attempt Called the patient and left a message to contact the scheduling department at [phone] CHUTE MENDER * Telephone Encounter - Luz Kumar - 03/31/2018 4:35 PM CST 1st Attempt Called the patient and left a message to contact the scheduling department at [phone] CHUTE MENDER * Telephone Encounter - Shirley Velasquez MD - 03/31/2018 2:40 PM PARACHUTE MENDER Unfortunately I don't have availability later in the morning on 04/11, and I only see patients in the morning. Please offer another date. CHUTE MENDER * Telephone Encounter - Pavithra Tsang - 03/29/2018 2:04 PM CST Pt Jimena Au I called to get patient scheduled to see and the next avail is for 04/11/18 at 8:30 AM. Pt is requesting to get scheduled for that same day but is requesting for later in that day 10 to 11 gary 1 or 2 PM. Thank you so much Pavithra CHUTE MENDER documented in this encounter Plan of Treatment Upcoming Encounters Date Type Department Care Team (Late st Contact Info) Description 06/07/2025 11:00 AM CDT Office Visit [facility] - Ophthalmology [address] [place] [address] Aly Stone, SHAZIA [address] [place] [address] documented as of this encounter Goals Goal Patient Goal Type Associated Problems Recent Progress Patient-Stated? Author Safety General On track( 019 11:17 AM PARACHUTE MENDER) Elle Timmons, RN Note: Expected end date: Ongoing Interventions: Your nurse will assess your risk for falls/injury each visit Use appropriate and safe transfer methods Medication Management General On track( 019 11:17 AM PARACHUTE MENDER) Elle Timmons RN Note: Expected end date: Ongoing Interventions: Take all medications as prescribed Let your doctor know right away about any changes in your medications documented as of this encounter Visit Diagnoses Not on filedocumented in this encounter Care Teams Juvenile Counselor Relationship Specialty Start Date End Date Shirley Velasquez MD PCP - General 01/23/16 03/21/24 Cristofer Hull MD [address] [place], [place] [id number] PCP - General Family Medicine 03/22/24 documented as of this encounter
--- OUTSIDE RECORDS SUMMARY | 2024-12-25 15:53 | XMS_ITS | Encounter Summary ---
Author Organization [facility] Address [address] [facility] [place] [address] Care Team Providers Care Program Associate Name Role Phone Shirley Velasquez MD Primary Care Provider Cristofer Hull MD Primary Care Provider [phone] Reason for Visit * Reason Onset Date Comments Chest Pain 10/21/2018 Encounter Details Date Type Department Care Team (Late st Contact Info) Description 10/21/2018 Telephone [facility] General Internal Medicine [address] [address] [facility] [address] [place] [address] Shilrey Velasquez MD [address] [facility] [address] [place], [place] [phone] Chest Pain Social History Tobacco Use Types Packs/Day Years Used Date Smoking Tobacco: Former Cigarettes Q uit: 12/20/1984 Smokeless Tobacco: Never Alcohol Use Standard Drinks/Week Comments Yes 7 (1 standard drink = 0.6 oz pur e alcohol) 4-6 drinks/ week Comments No Sex and Gender Information Value Date Recorded Sex Assigned at Not on file Legal Sex Female 5:21 PM UNDERWATER WELDER Gender Identity Not on file Sexual Orientation Not on file documented as of this encounter Miscellaneous Notes * Telephone Encounter - America Boston - 10/25/2018 10:39 AM CDT Jimena [...] Dr Velasquez said do not take naproxen. [phone] documented in this encounter Plan of Treatment Upcoming Encounters Date Type Department Care Team (Late st Contact Info) Description 06/07/2025 11:00 AM CDT Office Visit [facility] - Ophthalmology [address] [place] [phone] Aly Stone, OD [address] [place] [address] documented as of this encounter Goals Goal Patient Goal Type Associated Problems Recent Progress Patient-Stated? Author Safety General On track( 11:17 AM UNDERWATER WELDER) Elle Timmons RN Note: Expected end date: Ongoing Interventions: Your nurse will assess your risk for falls/injury each visit Use appropriate and safe transfer methods Medication Management General On track( 11:17 AM UNDERWATER WELDER) No Koeper, Elle K., RN Note: Expected end date: Ongoing Interventions: Take all medications as prescribed Let your doctor know right away about any changes in your medications documented as of this encounter Visit Diagnoses Not on filedocumented in this encounter Care Teams Program Associate Relationship Specialty Start Date End Date Shirley Velasquez MD PCP - General 01/23/16 03/21/24 Cristofer Hull MD [address] [place] [address] PCP - General Family Medicine 03/22/24 documented as of this encounter
--- OUTSIDE RECORDS SUMMARY | 2024-12-25 15:53 | XMS_ITS | Clinical Summary ---
Author Organization [facility] Address [address] [place] [address] Care Team Providers Care Automobile Parts Assembler Name Role Phone Cristofer Hull MD Primary Care Provider [phone] Source Comments [facility],non-owned Affiliates and Associated Physician Practices is amultiple site organization consisting of ambulatory clinics and hospital sitesin [place], [place], [place] and [place]. This disclosure is being madepursuant to the Care Everywhere program and may not contain all information available regarding this patient. Last updated 17.[facility] Allergies Active Allergy Reactions Criticality Noted Date Comments Codeine Nausea,Nausea and/or Vomiting,Other,GI Discomfort Low 03/31/2012 Propylthiouracil Other Low 12/20/2014 PTU-can take by Actravis Business Services Officer. , Develops hair loss from PTU-by Olivier Business Services Officer. 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 Colonoscopy - has frequent colonoscopies for family history Q 5 years, Dr. Clement Bone density - pending. 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 Gender Identity Not on file Sexual Orientation Not on file Last Filed Vital Signs Vital Sign Reading Time Taken Comments Blood Pressure 112/80 02/06/2019 8:44 AM PULVI MIXER OPERATOR Pulse 72 02/06/2019 8:44 AM PULVI MIXER OPERATOR Temperature 36.6 C (97.9 F) 02/06/2019 8:44 AM PULVI MIXER OPERATOR Respiratory Rate 18 10/25/2018 9:47 AM CDT Oxygen Saturation 92% 02/06/2019 8:44 AM PULVI MIXER OPERATOR Inhaled Oxygen Concentration - - Weight 52.6 kg (116 lb) 02/06/2019 8:44 AM PULVI MIXER OPERATOR Height 162.6 cm (5' 4) 10/25/2018 9:47 AM CDT Body Mass Index 19.91 10/25/2018 9:47 AM CDT Plan of Treatment Upcoming Encounters Date Type Department Care Team (Late st Contact Info) Description 06/07/2025 11:00 AM CDT Office Visit [facility] - Ophthalmology [address] [place] [phone] Aly Stone, SHAZIA [address] [place] [phone] Health Maintenance Due Date Last Done Comments COLOGUARD (AGES 45-75) - COLON CA SCREENING 1950 CT COLONOGRAPHY - COLON CA SCREENING 1950 FIT - COLON CA SCREENING 1950 FLEX SIG - COLON CA SCREENING 1950 Respiratory Syncytial Virus (RSV) Vaccine Pt: or over 60 yrs (1 - Risk 60-74 years 1-dose series) 2012 ZOSTER VACCINE (2 of 3) 09/17/2014 07/23/2014 MAMMOGRAM 07/25/2022 07/25/2020, 1208/2017, 03/27/2016 (Done Outside Per Report) LIPID TESTING 11/09/2023 11/08/2018, 11/26/2015 DEPRESSION SCREENING 02/23/2024 MEDICARE AWV CALENDAR YEAR 2024 DTAP/TDAP/TD VACCINES (2 - Td or Tdap) 07/23/2024 07/23/2014 COVID-19 VACCINE ( season) 2024 INFLUENZA VACCINE (#1) 2024 4, 02/02/2022, 11/07/2018, Additional history exists COLON MONITORING 08/01/2031 07/31/2021 COLONOSCOPY - COLON CA SCREENING 08/01/2031 07/31/2021, 12/01/2016 Colorectal Cancer Screening 08/01/2031 HEPATITIS C SCREENING Completed 11/26/2015 BONE DENSITY TESTING Completed 11/04/2018, 11/30/19 15 PNEUMOCOCCAL VACCINE 50+ Completed 02/06/2019, 01/22 HEPATITIS B VACCINE Aged Out No longe [...] Author Safety General On track( 11:17 AM PULVI MIXER OPERATOR) Elle Timmons RN Note: Expected end date: Ongoing Interventions: Your nurse will assess your risk for falls/injury each visit Use appropriate and safe transfer methods Medication Management General On track( 11:17 AM PULVI MIXER OPERATOR) Elle Timmons RN Note: Expected end date: Ongoing Interventions: Take all medications as prescribed Let your doctor know right away about any changes in your medications Procedures Procedure Name Priority Date/Time Associated Diagnosis Comments LIPID PROFILE 11/08/2018 12:34 PM CDT DEXA BONE DENSITY AXIAL SKELETON Routine 11/04/2018 9:31 AM CDT Osteoporosis, unspecified osteoporosis type, unspecified pathological fracture presence MAMMOGRAM 01/28/2018 2:41 PM PULVI MIXER OPERATOR HEPATITIS C AB W/RFLX TO HCV RNA [...] factors. LDL-C is now calculated using the Delfino calculation, which is a validated novel method providing better accuracy than the Friedewald equation in the estimation of LDL-C. Mayur MARTIN et al. VALENTIN. 2013;310(19): 1003-3037 (http://education.Balihoo.cartmi/faq/UGT027) CHOL/HDLC RATIO 2.5 <5.0 (calc) [facility] Non HDL Cholesterol 112 <130 mg/dL (calc) [facility] Comment: For patients with diabetes plus 1 major ASCVD risk factor, treating to a non-HDL-C goal of <100 mg/dL (LDL-C of <70 mg/dL) is considered a therapeutic option. Test Performed at: [facility] [address] [place] [address] ALEAH RAE DO,MPH 11/08/2018 12:3 4 PM CDT 11/08/2018 12:35 PM CDT Shirley Velasquez MD LAB - CHEMISTRY TANIKA RAM Final Result [facility] [address] [place] [address] * BONE DENSITY AXIAL SKELETON(1OR MORE SITES)[id number] (11/04/2018 9:31 AM CDT) Anatomical Region Laterality Modality Other 11/04/2018 9:51 AM CDT Narrative 11/04/2018 4:35 PM CDT EXAMINATION: Dual energy x-ray absorptiometry of the lumbar spine and hip. CLINICAL INDICATION: Osteoporosis. Patient's height 64 inches; weight 115 lb. FINDINGS: Detailed data from the exam is sent separately to the ordering physician and is also available on Corvil, the Radiology Department's computerized picture archive system. [...] CLINICAL INDICATION: Osteoporosis. Patient's height 64 inches; [id number] lb. FINDINGS: Detailed data from the exam is sent separately to the ordering physician and is also available on Corvil, the Radiology Department's computerized picture archive system. [...] Final Result * MAMMOGRAM (01/28/2018 2:41 PM PULVI MIXER OPERATOR) Anatomical Region Laterality Modality Other Narrative 01/28/2018 2:41 PM PULVI MIXER OPERATOR Ordered by an unspecified provider. us Scanned Document SCANNING ONLY Final Result * HEPATITIS C AB W/RFLX TO HCV RNA QN PCR (11/26/2015 3:10 PM CDT) Hepatitis C Antibody NON-REACTI VE NON-REACT [facility] ([facility]) Signal/Cutoff 0.04 <1.00 [facility] ([facility]) Comment: REPORT COMMENT: FASTING:NO Test Performed at: [facility] [address] [place] [address] ALEAH RAE DO,MPH 11/26/2015 3:10 PM CDT 11/26/2015 3:11 PM CDT us Shirley Velasquez MD LAB - CHEMISTRY ORDERA BLES Final Result [facility]) [id number] from Last 3 Months or Most Recently Relevant to Health Maintenance Insurance AETNA AETNA MEDICARE ADV AETNA AETNA Care Teams Automobile Parts Assembler Relationship Specialty Start Date End Date Cristofer Hull MD [address] [place] [address] PCP - General Family Medicine 03/22/24
== END 2024-12-25 15:35 | disposition home or self-care (01) ==
PROVIDERS: PCP Family Medicine; Visit Provider Family Medicine
DX: M79.645 Pain in left finger(s) (principal)
CPT/HCPCS: 73140

== ENCOUNTER 2025-01-06 18:25 | Emergency (ER) | payer MEDICARE, SELFPAY ==
--- NOTE | ~2025-01-06 | XR_ITS ---
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 Pain right side COMPARISON: No comparisons available. Findings: No acute fracture or malalignment. No significant degenerative changes. Soft tissues unremarkable. Impression: No acute fracture or malalignment. Reviewed, dictated and finalized at location P. R GRINDER OPERATOR HELPER Impression: No acute fracture or malalignment.
[2025-01-06 18:36] VITALS: BP 122/52; PULSE 62; RESP 16; TEMP 36.1; O2SAT 99
--- NOTE | 2025-01-06 18:42 | ED_ITS ---
HPI - Back Pain/Injury General Chief Complaint: Back Pain/Injury Stated Complaint: TAILBONE INJURY Time Seen by Provider: 01/06/25 18:38 Source: patient and RN notes reviewed Mode of arrival: ambulatory Limitations: no limitations History of Present Illness HPI Narrative: Patient presents today complaining of coccygeal pain. Two weeks ago she fell when her dog pulled her down and has been having pain ever since. Denies radiation of the pain, numbness or tingling of the legs or genitalia, loss of bowel or bladder control. No OTC treatment prior to arrival. Related Data Home Medications ?Medication ?Instructions ?Recorded ?Confirmed ?Last Taken ?Type sertraline 50 mg tablet mg 01/06/25 Unknown History Allergies Allergy/AdvReac Type Severity Reaction Status Date / Time codeine Allergy Unknown Nausea Verified 10/25/24 10:21 [facility] Past Medical History Medical History Anxiety Depression Lung nodule Surgical History Surgical History History of bilateral cataract extraction History of cholecystectomy History of appendectomy Hx of tonsillectomy Social History Social History Years smoked: 5 Smoking status: Former smoker Smokeless tobacco user: other Additional smoking assessment comments: Smokes marijuana Alcohol intake: current Drinks per week: 2 Substance use: current Substance use type: marijuana Other substance usage details: Smokes Last use: 07/09/21 Living arrangements: other Additional living arrangements comments: With SP Spiritual care concerns: No Comments At time of signature, I have reviewed and agree with nursing past medical, surgical, social and family history unless otherwise noted. Please see nursing chart for further information. There is no relevant family history pertinent to the presenting complaint Exam 2 Narrative: GENERAL: Well-appearing, well-nourished, and in no acute distress. HEAD: Normocephalic, atraumatic. EYES: EOMI. No redness or drainage. Conjunctivae normal. ENT: Mucous membranes pink and moist. NECK: Normal AROM. CHEST: No respiratory distress. MUSCULOSKELETAL: No bony tenderness of the coccyx. Mild tenderness to the right lower sacrum with edema, ecchymosis or crepitus Neurovascularly intact. EXTREMITIES: Normal range of motion. No edema. SKIN: Warm, dry, no rash. Capillary refill normal. Normal skin turgor. NEURO: No focal deficits. Alert and oriented x3. Gait steady. PSYCH: Normal affect. No signs of depression or anxiety. Course Course Level of Care: Express Care Visit Vital Signs Vital signs: Vital Signs Temperature 97 F L 01/06/25 18:36 Pulse Rate 62 01/06/25 18:36 Respiratory Rate 16 01/06/25 18:36 Blood Pressure 122/52 L 01/06/25 18:36 Pulse Oximetry 99 01/06/25 18:36 Temperature 97 F L 01/06/25 18:36 Pulse Rate 62 01/06/25 18:36 Respiratory Rate 16 01/06/25 18:36 Blood Pressure 122/52 L 01/06/25 18:36 Pulse Oximetry 99 01/06/25 18:36 Reviewed MDM - Back Pain/Injury MDM Narrative Medical decision making narrative: Patient presents today complaining of coccygeal pain. Two weeks ago she fell when her dog pulled her down and has been having pain ever since. Denies radiation of the pain, numbness or tingling of the legs or genitalia, loss of brooke wel or bladder control. No OTC treatment prior to arrival. Upon exam, Mild tenderness to the right lower sacrum with edema, ecchymosis or crepitus Neurovascularly intact. Xray negative. Recommend conservative treatment with PCP follow up in a few weeks if symptoms persist. Differential Diagnosis Differential diagnosis: Likely other (Coccygeal fracture, contusion, sacral fracture) Imaging Data Radiologist's impression: ITS Impressions Sacrum and Coccyx X-Ray 01/06/25 18:53 Impression: No acute fracture or malalignment. Critical Care Time Critical Care Time Critical Care Time: No Discharge Plan Discharge Clinical Impression: Coccygeal contusion Qualifiers: Encounter type: initial encounter Qualified Code(s): S30.0XXA - Contusion of lower back and pelvis, initial encounter Patient Disposition: Home Condition: Stable Instructions: Coccyx Injury (ED) Additional Instructions: Your x-ray is negative today. You may try an anti-inflammatory such as Aleve or ibuprofen. You may find some relief with a doughnut cushion as well as ice/heat. Please follow-up with your PCP in 1-2 weeks if symptoms are not improving. Patient Language: Bulgarian Prescriptions: No Action sertraline 50 mg tablet alendronate 70 mg tablet 70 mg PO WEEKLY Qty: 14 3RF omeprazole 40 mg capsule,delayed release(DR/EC) 40 mg PO DAILY Qty: 90 0RF Follow-up/Referrals: Cristofer Hull MD [Primary Care Provider, Family Practice] Time of Disposition: 19:04
== END 2025-01-06 19:06 | disposition home or self-care (01) ==
PROVIDERS: Emergency Provider Nurse Practitioner; PCP Family Medicine
DX: S30.0XXA Contusion of lower back and pelvis, initial encounter (principal); W19.XXXA Unspecified fall, initial encounter; F41.9 Anxiety disorder, unspecified; F32.A Depression, unspecified; Z98.42 Cataract extraction status, left eye; Z98.41 Cataract extraction status, right eye; Z87.891 Personal history of nicotine dependence
CPT/HCPCS: 72220; 99213; G0463

== ENCOUNTER 2025-02-19 12:49 | Outpatient (CLI) | payer MEDICARE, SELFPAY ==
--- NOTE | ~2025-02-19 | CT_ITS ---
EXAMINATION:CT diagnostic chest wo con DATE: 02/19/2025 13:16 INDICATION: Solitary pulmonary nodule. TECHNIQUE: Computed tomography (CT) of the chest was performed without intravenous contrast. Automated exposure control and iterative reconstruction technique were employed. The dose-length product (DLP) was 40.67 mGy-cm. COMPARISON: Chest CT 07/18/2024 FINDINGS: There is mild scarring at the lung apices. There is a new 6 mm nodule in left lower lobe. There are centrilobular nodules in right middle lobe, consistent with mild infection. There is mild bronchiectasis in right upper lobe. No pleural effusion. The heart size is normal. No pericardial effusion. There are changes of cholecystectomy. There is mild thoracic spondylosis. IMPRESSION: 1. Centrilobular nodules in right middle lobe, consistent with mild infection. 2. New 6 mm nodule in left lung lower lobe, probably benign. Consider noncontrast low-dose chest CT in 6-12 months. Reviewed, dictated and finalized at location E. TIENT CODER IMPRESSION: 1. Centrilobular nodules in right middle lobe, consistent with mild infection. 2. New 6 mm nodule in left lung lower lobe, probably benign. Consider noncontra st low-dose chest CT in 6-12 months.
== END 2025-02-19 12:50 | disposition home or self-care (01) ==
LOC: MICIMG 12:50
PROVIDERS: PCP Family Medicine; Visit Provider Internal Medicine Pulmonary Disease
DX: R91.8 Other nonspecific abnormal finding of lung field (principal)
CPT/HCPCS: 71250

== ENCOUNTER 2025-02-19 12:54 | Outpatient (CLI) | payer MEDICARE, SELFPAY ==
--- NOTE | ~2025-02-19 | DEXA_ITS ---
Bone Density Report Name: ISMA HODGES Age: 74 Sex: Female Ethnicity: White Date of : 1950 Indication: postmenopausal osteoporosis; monitoring treatment; height loss; Referring Provider: SAMANTHA REVELES Study: Bone densitometry was performed. Exam Date: February 19, 2025 Accession number: [id number] Bone Density: Region BMD T-score Z-score Classification AP Spine(L1-L4) 0.638 -3.7 -1.5 Osteoporosis Femoral Neck (Left) 0.572 -2.5 -0.6 Osteoporosis Total Hip (Left) 0.671 -2.2 -0.6 Osteopenia Femoral Neck (Right) 0.558 -2.6 -0.7 Osteoporosis Total Hip (Right) 0.698 -2.0 -0.4 Osteopenia Total Hip Mean 0.685 -2.1 -0.5 Osteopenia World Health Organization criteria for BMD impression classify patients as: Normal (T-score at or above -1.0), Osteopenia (T-score between -1.0 and -2.5), or Osteoporosis (T-score at or below -2.5). 10-year Fracture Risk: FRAX not reported because: Some T-score for Spine Total or Hip Total or Femoral Neck at or below -2.5 Treated for osteoporosis Previous Exams: -- Region Exam Age BMD T-score BMD Change BMD Change Date g/cm2 vs Baseline vs Previous -- AP Spine (L1-L4) 02/19/2025 74 0.638 -3.7 -18.8%# 4.3%* 02/12/2023 72 0.612 -4.0 -22.1%# -24.3%# 04/14/2010 59 0.808 -2.2 2.8% 2.8% 04/11/2008 57 0.786 -2.4 Total Hip(Left) 02/19/2025 74 0.671 -2.2 -11.6%* -7.2%* 02/12/2023 72 0.723 -1.8 -4.7%* -11.4%* 04/14/2010 59 0.817 -1.0 7.6%* 7.6%* 04/11/2008 57 0.759 -1.5 Total Hip(Right) 02/19/2025 74 0.698 -2.0 -9.4%* -2.1% 02/12/2023 72 0.713 -1.9 -7.5%* -11.3%* 04/14/2010 59 0.804 -1.1 4.4%* 4.4%* 04/11/2008 57 0.770 -1.4 -- *Denotes significance at 95% confidence level, LSC for AP Spine = 0.022 g/cm2, LSC for Total Hip = 0.027 g/cm2 # Denotes dissimilar scan types or analysis methods Clinical Information Provided by Patient: Is being treated for osteoporosis Has used the following medications: Fosamax (i.e. alendronate), Vitamin D, Calcium Patient maximum height was 65 Menopause Age: 47 No regular weight bearing exercise Does not regularly consume dairy products Drinks caffeinated beverages Onset of menses at age 15 Number of children 1 Impression: The patient has osteoporosis, based on the Total Spine T-score. The BMD for the Total Hip(Left) decreased, changing by -7.2% since the last DXA exam. Discussion: SIGNIFICANT BONE LOSS OBSERVED. Adherence to therapy (including calcium and vitamin D intake) should be assessed. If compliance is not a factor, review management and exclusion of secondary causes of bone loss. It is important to ask patients whether they are taking their medications and to encourage continued and appropriate compliance with their osteoporosis therapies to reduce fracture risk. It is also important to review their risk factors and encourage appropriate calcium and vitamin D intakes, exercise, fall prevention and other lifestyle measures. Follow-Up: Consider a repeat BMD and Vertebral Fracture Assessment (VFA) exam in 2 years or sooner if medically necessary, to reassess this patient's status. Reported by: KIKI on 02/19/2025 1:29:00 PM. Reviewed, dictated and finalized at location A.
== END 2025-02-19 12:55 | disposition home or self-care (01) ==
LOC: MICIMG 12:56
PROVIDERS: PCP Family Medicine; Visit Provider Family Medicine
DX: M81.0 Age-related osteoporosis without current pathological fracture (principal); M85.89 Other specified disorders of bone density and structure, multiple sites; Z78.0 Asymptomatic menopausal state
CPT/HCPCS: 77080